=== PATIENT | male | born 1990 | race Caucasian/White ===

== ENCOUNTER 2020-07-23 16:18 | Emergency (ER) | payer OTHER, SELFPAY ==
--- NOTE | ~2020-07-23 | XR_ITS ---
EXAMINATION: XR CHEST CLINICAL INFORMATION: Indication cyst COMPARISON: Chest 07/04/2017. TECHNIQUE: Frontal view of the chest was obtained. FINDINGS: No significant abnormality is noted involving the heart, lungs, mediastinum, bony thorax or soft tissues. XR/XR chest 1V IMPRESSION: Unremarkable chest examination.
[2020-07-23 16:25] VITALS: BP 162/75; PULSE 102; RESP 18; TEMP 36.9; O2SAT 98; BMI 42.3
[2020-07-23 16:36] VITALS: BP 125/87; PULSE 90; RESP 18; O2SAT 98
[2020-07-23 16:55] LABS: MANUAL DIFF FLAG NO
[2020-07-23 16:58] LABS: Basophils Percent Auto 0.5 % (0-2); Eosinophils Absolute Auto 0.1 X10*3/uL (0.0-0.4); Eosinophils Percent Auto 1.3 % (0-4); Hematocrit 51.8 % (42-52); Hemoglobin 17.2 g/dl (14.0-18.0); Imm Gran Abs Auto 0.02 X10*3/uL (0.00-0.03); Imm Gran Pct Auto 0.2 % (0.0-0.4); Lymphocytes Percent Auto 35.2 % (20-40); Mean Corpuscular HGB Conc 33.2 g/dl (31.0-36.0); Mean Corpuscular Hemoglobin 27.8 pg (27.0-33.0); Mean Corpuscular Volume 83.7 fL (80-98); Mean Platelet Volume 10.9 fL (9.4-12.4); Monocytes Absolute Auto 0.7 X10*3/uL (0.1-1.2); Monocytes Percent Auto 8.3 % (2-11); Neutrophils Absolute Auto 4.6 X10*3/uL (2.0-8.3); Neutrophils Percent Auto 54.5 % (45-73); Platelet Count 293 X10*3/uL (160-400); Red Blood Count 6.19 X10*6/uL (4.60-5.80); Red Cell Distribution Width 12.6 % (11.0-16.0); White Blood Count 8.5 X10*3/uL (4.8-10.8)
--- NOTE | 2020-07-23 17:17 | ECG_ITS ---
Test Reason : REPEAT Blood Pressure : / mmHG Vent. Rate : 084 BPM Atrial Rate : 084 BPM P-R Int : 134 ms QRS Dur : 104 ms QT Int : 348 ms P-R-T Axes : 049 017 003 degrees QTc Int : 411 ms Normal sinus rhythm Normal ECG When compared with ECG of 28-JAN-2019 Referred By: Hannah Juárez Electronically Signed By:GAGE PÉREZ MD
--- NOTE | 2020-07-23 17:17 | ED.ARRPALP ---
HPI - Arrhythmia/Palpitations General Chief Complaint: Arrhythmia/Palpitations Stated Complaint: afib Source: patient Mode of arrival: ambulatory Limitations: no limitations History of Present Illness HPI narrative: 29-year-old male with past medical history of AFib with cardioversion approximately 2 years ago, sleep apnea awaiting CPAP, receives testosterone replacement, obese presents with palpitations that woke him up this morning at approximately 4:00 a.m.. States the palpitations feels like his prior episode of AFib. He does have sleep apnea, was fitted for a CPAP machine and is going to pick it up tomorrow. He does not have the palpations at this moment, states that he has had intermittent episodes of palpitations today. He does not describe any chest pain or pressure, shortness of breath, shortness of breath on exertion, abdominal pain, abdominal distention, dysuria, hematuria, fevers or chills. MD complaint: rapid heart beat, skipped beats and palpitations Onset (ago): day(s) (1) Severity: moderate Context: awoke with symptoms Arrhythmia history: atrial fibrillation and history of electrical cardioversion Associated symptoms: denies other symptoms Related Data Allergies Allergy/AdvReac Type Severity Reaction Status Date / Time prednisone Allergy Unknown Unknown Verified 07/23/20 16:28 No Known Allergies Allergy Unverified 01/26/20 17:16 Review of Systems Review of Systems: Constitutional: No Weight loss, No Fever, No Chills, No Night Sweats, No Fatigue, No Malaise ENT/Mouth: No Hearing loss, No Ear Pain, No Nasal Congestion, No Sinus Pain, No Hoarseness, No sore throat, No Rhinorrhea, No Swallowing Difficulty Eyes: No Eye Pain, No Swelling, No Redness, No Foreign Body, No Discharge, No Vision Changes Cardiovascular: Positive palpitations, No Chest Pain, no SOB, no Dyspnea on Exertion, No Orthopnea, No Edema Respiratory: No Cough, No Sputum, No Wheezing, No Smoke Exposure, No Dyspnea Gastrointestinal: No Nausea, No Vomiting, No Diarrhea, No abdominal Pain, No Hematochezia, No Melena Genitourinary: No irregular bleeding, No Dysuria, No Urinary Frequency, No Hematuria, No Urinary Incontinence, No Urgency, No Flank Pain, No Urinary Flow Changes, No Hesitancy Musculoskeletal: No joint pain, No Myalgias, No Joint Swelling Skin: No Skin Lesions, No rash Neuro: No Weakness, No Numbness, No Paresthesias, No Loss of Consciousness, No Dizziness, No Headache Psych: No Anxiety/Panic, No Depression, No SI/HI/AH/VH Heme/Lymph: No Bruising, No Bleeding,No Lymphadenopathy Endocrine: No Polyuria, No Polydipsia, No Temperature Intolerance Yes all other systems are reviewed and are negative [facility] Past Medical History Attestation statement: The following information was validated with the patient. Source: old records reviewed Social History Social History Alcohol intake: former Smoking Status: Former smoker Use of substances other than those prescribed or required for medical reasons: No Advance Directives: No Advance Directives Information Provided: No Physical Exam Vital Signs: Vital Signs: Last Vital Signs Temp 97.6 F 07/23/20 18:17 Pulse 90 07/23/20 18:17 Resp 12 07/23/20 18:17 BP 133/89 07/23/20 18:17 Pulse Ox 97 07/23/20 18:17 Body Mass Index 42.3 Appearance: Alert. Oriented X3. No acute distress. Head: Normal external exam. Normocephalic. Atraumatic. No Coyle signs noted. No raccoon eyes noted Eyes: PERRLA. EOMI. Conjunctiva and sclera normal. Eyelids normal. ENT: TM's Normal. Pharynx normal. Uvula midline. Moist mucous membranes. No trismus noted. No drooling noted. No muffled voice noted. Neck: Normal inspection. Neck supple. No adenopathy. Thyroid Normal. No meningeal signs. No neck mass noted. CVS: Normal heart rate and rhythm. Heart sound normal. No murmurs noted. Pulses equal to all extremities. Respiratory: No respiratory distress. Painless inspiration. Breath sounds normal. No wheezes/rales/rhonchi noted. Chest nontender. No accessory muscle usage noted or decreased air movement noted. Abdomen: Soft and nontender. Bowel sounds normal in all 4 quadrants. No distention noted. No organomegaly noted. No visible injury noted. Back: No CVA tenderness. Full range of motion noted. Skin: Skin warm and dry. Normal skin color. Normal skin turgor. No rashes/lesions/lacerations noted. Extremities: No lower extremity edema. Extremities exhibit normal range of motion. Extremities nontender. Neuro: cranial nerves 2-12 intact, no focal neural deficits, strength 5/5 to all extremities, No motor deficit. No sensory deficit. Reflexes normal. Course Course Course Narrative: 29-year-old male presents with palpitations. Does have recent history of sleep apnea, is taking of his CPAP machine tonight. Had cardioversion approximately 2 years ago for AFib. He is being treated with testosterone, he used anabolic steroids in his early 20s which messed up his system ?and now requires testosterone shots. Will repeat EKG, CBC, Chem 7, and troponin. At the time my exam patient is alert oriented x4, no acute distress, even unlabored respirations, regular rate and rhythm, no murmurs gallops or rubs, pulses equal to all extremities with brisk capillary refill. EKG is normal sinus rhythm, troponin 0, chest x-ray is negative. Patient has seen Dr. Woo and Dr Garsia remain in the past for Holter monitor in December of 2019 which showed no significant findings except for PVCs, and echocardiogram in 2014 with normal ejection fraction. He does not take any medications for his AFib, currently not in AFib according to EKG. Patient will follow-up with Dr. Garsia for medication consult, palpitations could also be because of sleep apnea without CPAP machine. He does understand the importance of using this device. MDM - Arrhythmia/Palpitations Differential Diagnosis Differential diagnosis: Likely palpitations, anxiety, sinus tachycardia, artial fibrillation, artial flutter, ventricular premature beats and supraventricular tachycardia Medical Records Attestation: I reviewed the patient's medical records. Lab Data Attestation: I reviewed the patient's lab results. Result diagrams: 07/23/20 16:46 07/23/20 16:46 Labs: Lab Results 07/23/20 07/23/20 07/23/20 Range/Units 16:46 16:46 16:46 WBC 8.5 (4.8-10.8) X10*3/uL RBC 6.19 H (4.60-5.80) X10*6/uL Hgb 17.2 (14.0-18.0) g/dl Hct 51.8 (42-52) % MCV 83.7 (80-98) fL MCH 27.8 (27.0-33.0) pg MCHC 33.2 (31.0-36.0) g/dl RDW 12.6 (11.0-16.0) % Plt Count 293 (160-400) X10*3/uL MPV 10.9 (9.4-12.4) fL Immature Gran % (Auto) 0.2 (0.0-0.4) % Neut % (Auto) 54.5 (45-73) % Lymph % (Auto) 35.2 (20-40) % Ritchie % (Auto) 8.3 (2-11) % Eos % (Auto) 1.3 (0-4) % Baso % (Auto) 0.5 (0-2) % Lymph # (Auto) 3.0 (1.2-4.9) X10*3/uL Ritchie # (Auto) 0.7 (0.1-1.2) X10*3/uL Eos # (Auto) 0.1 (0.0-0.4) X10*3/uL Baso # (Auto) 0.0 (0.0-0.2) X10*3/uL Abs Immat Gran (auto) 0.02 (0.00-0.03) X10*3/uL Absolute Neuts (auto) 4.6 (2.0-8.3) X10*3/uL Absolute Nucleated RBC 0.000 (0.0-0.012) X10*3/uL Nucleated RBC % (auto) 0.0 (0.0-0.2) /100WBC Hold Purple Top SEE NOTE Hold Blue Top SEE NOTE Sodium (135-145) mmol/L Potassium (3.3-5.1) mmol/L Chloride (96-108) mmol/L Carbon Dioxide (22-29) mmol/L Anion Gap (12-20) BUN (9-16) mg/dL Creatinine (0.5-1.4) mg/dL Estim Creat Clear Calc Estimated GFR Random Glucose (60-115) mg/dL Calcium (8.4-10.2) mg/dL Total Bilirubin (0.0-1.0) mg/dL AST (5-37) U/L ALT (0-40) U/L Alkaline Phosphatase (39-117) U/L Troponin I High Sens (<3.5-35.0) ng/L Total Protein (6.5-8.0) g/dL Albumin (3.5-5.0) g/dL 07/23/20 07/23/20 Range/Units 16:46 16:49 WBC (4.8-10.8) X10*3/uL RBC (4.60-5.80) X10*6/uL Hgb (14.0-18.0) g/dl Hct (42-52) % MCV (80-98) fL MCH (27.0-33.0) pg MCHC (31.0-36.0) g/dl RDW (11.0-16.0) % Plt Count (160-400) X10*3/uL MPV (9.4-12.4) fL Immature Gran % (Auto) (0.0-0.4) % Neut % (Auto) (45-73) % Lymph % (Auto) (20-40) % Ritchie % (Auto) (2-11) % Eos % (Auto) (0-4) % Baso % (Auto) (0-2) % Lymph # (Auto) (1.2-4.9) X10*3/uL Ritchie # (Auto) (0.1-1.2) X10*3/uL Eos # (Auto) (0.0-0.4) X10*3/uL Baso # (Auto) (0.0-0.2) X10*3/uL Abs Immat Gran (auto) (0.00-0.03) X10*3/uL Absolute Neuts (auto) (2.0-8.3) X10*3/uL Absolute Nucleated RBC (0.0-0.012) X10*3/uL Nucleated RBC % (auto) (0.0-0.2) /100WBC Hold Purple Top Hold Blue Top Sodium 140 (135-145) mmol/L Potassium 4.0 (3.3-5.1) mmol/L Chloride 104 (96-108) mmol/L Carbon Dioxide 25 (22-29) mmol/L Anion Gap 15 (12-20) BUN 14 (9-16) mg/dL Creatinine 1.22 (0.5-1.4) mg/dL Estim Creat Clear Calc 120.7 Estimated GFR > 60 Random Glucose 124 H (60-115) mg/dL Calcium 9.3 (8.4-10.2) mg/dL Total Bilirubin 0.8 (0.0-1.0) mg/dL AST 20 (5-37) U/L ALT 28 (0-40) U/L Alkaline Phosphatase 96 (39-117) U/L Troponin I High Sens < 3.5 (<3.5-35.0) ng/L Total Protein 6.8 (6.5-8.0) g/dL Albumin 4.0 (3.5-5.0) g/dL Imaging Data Chest x-ray: Attestation: I personally reviewed and interpreted this imaging study as follows: Radiologist's impression: EXAMINATION: XR CHEST CLINICAL INFORMATION: Indication cyst COMPARISON: Chest 07/04/2017. TECHNIQUE: Frontal view of the chest was obtained. FINDINGS: No significant abnormality is noted involving the heart, lungs, mediastinum, bony thorax or soft tissues. XR/XR chest 1V IMPRESSION: Unremarkable chest examination. ECG Data Attestation: I personally reviewed and interpreted this ECG as follows: ECG interpretation date: 07/23/20 ECG interpretation time: 16:36 Prior ECG tracings: not available for review Interpretation: Ventricular rate 94 beats per minute, RI 122, QRS 104, QT 330, QTC 412, normal sinus rhythm with sinus arrhythmia suggestive of early repolarization, prior EKG unavailable secondary to system 130 error EKG 2. July 24, 2019, time 6:51 p.m. Ventricular rate 84 beats per minute, RI 134, QRS 104, QT 348, QTC 411, normal sinus rhythm, normal EKG, no indication of ST depression or elevation consistent with ischemia, early repolarization, consistent with prior EKG on July 23, 2020 at 4:36 p.m. Scores Heart Score History: -0- slightly suspicious ECG: -1- non specific repolarization disturbance Age: -0- < or = 45 Risk factory: -1- 1 or 2 risk factors Troponin: -0- < or = normal limit Score: 2 Risk: 1.7% Discharge Plan Discharge Clinical Impression: Palpitations Patient Disposition: Home, Self-Care Instructions: Heart Palpitations (ED) Additional Instructions: You were evaluated for palpitations. Two EKGs were normal sinus rhythm with out any indication of ST elevation or depression. There is no indication of atrial fibrillation or flutter. Your cardiac enzymes were negative. Based on your past history of cardioversion for AFib approximately 2 years ago is highly recommended that he follow-up with Cardiology. I referred you to Dr Garsia. Please call and request an appointment for evaluation. Please apple picker your CPAP tomorrow. You do have an elevated glucose level of 124. This is considered prediabetes. Please follow-up with your primary care physician for closer monitoring. Thank you for choosing this emergency department for evaluation. Please follow-up with primary care physician as needed. Return to the emergency department for any new, concerning, or worsening symptoms. Referrals: Ramone Garsia MD [Physician] - 2 days (Palpitations, history of cardioversion approximately 2 years ago for AFib) Stand Alone Forms: Work/School Release Interventions: ED Discharge Assessment Last Done: 07/23/20 19:27 Discharge Date/Time: 07/23/20 19:28
[2020-07-23 17:19] VITALS: BP 132/79; PULSE 91; RESP 17; TEMP 36.9; O2SAT 97
[2020-07-23 17:21] LABS: Alanine Aminotransferase 28 U/L (0-40); Alkaline Phosphatase 96 U/L (39-117); Anion Gap 15 (12-20); Aspartate Amino Transferase 20 U/L (5-37); Bilirubin Total 0.8 mg/dL (0.0-1.0); Blood Urea Nitrogen 14 mg/dL (9-16); Calcium 9.3 mg/dL (8.4-10.2); Carbon Dioxide 25 mmol/L (22-29); Chloride 104 mmol/L (96-108); Creatinine Clr Calc Pharmacy 120.7; Estimated Glomerular Filt Rate > 60; Glucose Random 124 mg/dL (60-115); Sodium 140 mmol/L (135-145); Total Protein 6.8 g/dL (6.5-8.0)
--- NOTE | 2020-07-23 17:27 | PC.NURSE ---
Verified lab can run trop off of hold lav. Pending results.
[2020-07-23 17:45] LABS: Troponin-I High Sensitivity < 3.5 ng/L (<3.5-35.0)
[2020-07-23 18:17] VITALS: BP 133/89; PULSE 90; RESP 12; TEMP 36.4; O2SAT 97
== END 2020-07-23 19:28 | disposition home or self-care (01) ==
PROVIDERS: Nurse Practitioner Family; Emergency Provider Emergency Medicine; PCP Family Medicine
DX: R00.2 Palpitations (principal); I48.91 Unspecified atrial fibrillation; Z87.891 Personal history of nicotine dependence
CPT/HCPCS: 36415; 71045; 80053; 84484; 85025; 93005; 99283; 99285

== ENCOUNTER 2022-12-22 08:55 | Outpatient (REF) | payer OTHER, SELFPAY ==
--- NOTE | ~2022-12-22 | XR_ITS ---
EXAMINATION: XR ANKLE, LEFT XR TIBIA-FIBULA, LEFT CLINICAL INFORMATION: Chronic left ankle pain and lower leg pain, limping due to pain. Lateral leg injury in February 2022. Patient states numbness and tingling in toes when he plays basketball. Friona like his toes were bigger or mata . COMPARISON: None available. TECHNIQUE: 4 views of the left tibia/fibula. AP, oblique and 2 lateral views of the left ankle. FINDINGS: LEFT TIBIA/FIBULA: Tiny quadriceps enthesophyte. Bone mineralization is normal. LEFT ANKLE: The ankle mortise is preserved. Alignment maintained. Small possible ossicles along the anteroinferior aspect of the distal tibia on the lateral view of the ankle are difficult to characterize due to overlying bony structures. Additional imaging with CT scan or MRI should be considered for better visualization as these modalities are much more sensitive for detection of fracture or other underlying pathology. XR/XR ankle LT min 3V IMPRESSION: Small possible ossicles along the anteroinferior aspect of the distal tibia on the lateral view of the ankle are difficult to characterize due to overlying bony structures. Additional imaging with CT scan or MRI should be considered for better visualization as these modalities are much more sensitive for detection of fracture or other underlying pathology. Tiny quadriceps enthesophyte.
--- NOTE | ~2022-12-22 | XR_ITS ---
EXAMINATION: XR ANKLE, LEFT XR TIBIA-FIBULA, LEFT CLINICAL INFORMATION: Chronic left ankle pain and lower leg pain, limping due to pain. Lateral leg injury in February 2022. Patient states numbness and tingling in toes when he plays basketball. Pana like his toes were bigger or mata . COMPARISON: None available. TECHNIQUE: 4 views of the left tibia/fibula. AP, oblique and 2 lateral views of the left ankle. FINDINGS: LEFT TIBIA/FIBULA: Tiny quadriceps enthesophyte. Bone mineralization is normal. LEFT ANKLE: The ankle mortise is preserved. Alignment maintained. Small possible ossicles along the anteroinferior aspect of the distal tibia on the lateral view of the ankle are difficult to characterize due to overlying bony structures. Additional imaging with CT scan or MRI should be considered for better visualization as these modalities are much more sensitive for detection of fracture or other underlying pathology. XR/XR tibia fibula LT 2V IMPRESSION: Small possible ossicles along the anteroinferior aspect of the distal tibia on the lateral view of the ankle are difficult to characterize due to overlying bony structures. Additional imaging with CT scan or MRI should be considered for better visualization as these modalities are much more sensitive for detection of fracture or other underlying pathology. Tiny quadriceps enthesophyte.
== END 2022-12-22 08:56 | disposition home or self-care (01) ==
LOC: HO.HHCX 08:55
PROVIDERS: Visit Provider Family Medicine
DX: M25.572 Pain in left ankle and joints of left foot (principal); M79.605 Pain in left leg
CPT/HCPCS: 73590; 73610

== ENCOUNTER 2023-04-29 13:39 | Outpatient (REF) | payer BC, SELFPAY ==
[2023-04-29 16:46] LABS: MANUAL DIFF FLAG NO
[2023-04-29 16:52] LABS: Basophils Absolute Auto 0.1 X10*3/uL (0.0-0.2); Basophils Percent Auto 0.6 % (0-2); Eosinophils Absolute Auto 0.3 X10*3/uL (0.0-0.4); Eosinophils Percent Auto 2.7 % (0-4); Hematocrit 52.6 % (42.0-52.0); Hemoglobin 17.3 g/dl (14.0-18.0); Imm Gran Abs Auto 0.04 X10*3/uL (0.00-0.03); Imm Gran Pct Auto 0.4 % (0.0-0.4); Lymphocytes Absolute Auto 4.3 X10*3/uL (1.2-4.9); Lymphocytes Percent Auto 42.8 % (20-40); Mean Corpuscular HGB Conc 32.9 g/dl (31.0-36.0); Mean Corpuscular Hemoglobin 28.8 pg (27.0-33.0); Mean Corpuscular Volume 87.5 fL (80.0-98.0); Mean Platelet Volume 10.9 fL (9.4-12.4); Monocytes Absolute Auto 0.9 X10*3/uL (0.1-1.2); Monocytes Percent Auto 8.7 % (2-11); Neutrophils Absolute Auto 4.5 x10*3/uL (2.0-8.3); Neutrophils Percent Auto 44.8 % (45-73); Platelet Count 260 X10*3/uL (160-400); Red Blood Count 6.01 X10*6/uL (4.60-5.80); Red Cell Distribution Width 12.9 % (11.0-16.0); White Blood Count 9.9 X10*3/uL (4.8-10.8)
[2023-04-29 17:23] LABS: Estimated Average Glucose 123 mg/dL; Hemoglobin A1c % 5.9 % (<6.0)
[2023-04-29 17:44] LABS: Alanine Aminotransferase 37 U/L (0-40); Alkaline Phosphatase 84 U/L (39-117); Anion Gap 12 (12-20); Aspartate Amino Transferase 26 U/L (5-37); Bilirubin Direct 0.2 mg/dL (0.0-0.5); Blood Urea Nitrogen 13 mg/dL (9-16); Calcium 9.1 mg/dL (8.4-10.2); Carbon Dioxide 27 mmol/L (22-29); Chloride 103 mmol/L (96-108); Cholesterol 240 mg/dL (<200); Estimated Glomerular Filt Rate > 60; Glucose Random 146 mg/dL (60-115); HDL Cholesterol 40 mg/dL (>40); Iron 189 mcg/dL (45-160); LDL Cholesterol Calculated 170 mg/dL (<100); Percent Iron Saturation 49 % (15-50); Potassium 4.1 mmol/L (3.3-5.1); Sodium 138 mmol/L (135-145); Total Iron Binding Capacity 389 mcg/dL (228-428); Total Protein 7.2 g/dL (6.5-8.0); Triglycerides 152 mg/dL (<150); Unsaturated Iron Binding 200 ug/dL
[2023-04-29 17:51] LABS: Ferritin 301 ng/mL (20-250); Free T4 (Free Thyroxine) 0.85 ng/dL (0.71-1.85); Thyroid Stimulating Hormone 2.48 uIU/mL (0.32-4.0); Vitamin D 25-OH Total 45.7 ng/mL (>30)
[2023-04-29 18:14] LABS: CT PCR NOT DETECTED (Not Detect.); NG PCR NOT DETECTED (Not Detect.)
[2023-04-30 07:50] LABS: Syphilis Screen Nonreactive (Nonreactive)
[2023-04-30 07:53] LABS: HIV AB/AG Nonreactive (Nonreactive); HIV Num 1 0.04 S/CO (0.00-0.99)
[2023-04-30 07:58] LABS: HBS Num1 85.14 mIU/mL (0-7.99); HBsAGNum1 0.48 S/CO (0.00-0.99); Hepatitis B Surface Antigen Negative (Negative); ~HepC Num1 0.11 S/CO (0.00-0.79); ~Hepatitis B Surface Antibody REACTIVE (Nonreactive); ~Hepatitis C Antibody Nonreactive (Nonreactive)
[2023-05-01 13:19] LABS: HIV RNA PCR Qn Copies NOT DETECTED copies/mL (NOT DETECTED); HIV RNA PCR Qn Log Copies NOT DETECTED (NOT DETECTED)
[2023-05-03 05:48] LABS: Estradiol Ultra Sensitive 21 pg/mL (< OR = 29)
[2023-05-10 14:33] LABS: Testosterone, Free 33.7 pg/mL (35.0-155.0); Testosterone, Total 138 ng/dL (250-1100)
== END 2023-04-29 13:40 | disposition home or self-care (01) ==
LOC: HO.HHCL 13:39
PROVIDERS: Visit Provider Family Medicine
DX: Z00.00 Encounter for general adult medical examination without abnormal findings (principal); R79.89 Other specified abnormal findings of blood chemistry; Z20.2 Contact with and (suspected) exposure to infections with a predominantly sexual mode of transmission
CPT/HCPCS: 0353U; 36415; 80048; 80061; 80076; 82306; 82670; 82728; 83036; 83540; 84402; 84403; 84439; 84443; 85025; 86706; 86780; 86803; 87340; 87389; 87536

== ENCOUNTER 2024-11-15 11:27 | Outpatient (AMB) | payer OTHER, SELFPAY ==
--- NOTE | 2024-11-15 11:43 | A.OFFPC_ITS ---
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 Intake Note: patient here for new patient visit Simulation Developer Required: No Accompanied by: Spouse Allergies prednisone Allergy (Unknown, Verified 11/15/24 12:12) Unknown No Known Allergies Allergy (Verified 11/15/24 12:12) Medication List - Last Reviewed 11/22/24 by Lisa De Jesus MA testosterone cypionate (Depo-Testosterone) 200 mg subcut Q5D Tobacco use date assessed: 11/15/24 Dental Screening Dental Screen Date: 11/15/24 Did you have a dental visit in the last 12 months?: Yes Did you have a dental problem in the last 6 months where you did not have access to dental care?: No Was dental information given to patient?: Patient has dentist HPI HPI Comments History of Present Illness Details 34-year-old male presents to establish c are. Prior PCP? - [facility] Last office visit/CPE/labs - About 1 year Acute issue(s) - Reports chronic, intermittent sharp/p ulsating pain to his left lateral malelous and tingling and numbness of his left foot with increased physical activity. He attributes the pain to left ankle injury 2.5 years ago during a physical test for employment. He was followed by [facility] and [facility], had imaging done, including, MRI, and was told he had a tendon sprain. He requests a referral to another ortho specialist for a third opinion. - Reports TRT. He is on Depo-testosteron e 200 mg SC Q5D. His medications are prescribed by [facility], urology, in [place], [place]. Past Medical History - Childhood asthma, HLD, low testerone, chronic left ankle pain r/t left ankle injury Surgical History - Rhinoplasty Family History - Dad: DM, HTN, HLD, substance abuse - Mom: Cancer of nasal bone, DM, HTN - MGM: DM, HTN, HLD - MGF: HTN, HLD - PGF: HTN, HLD - PGM: DM, HTN, HLD Social History - Smokes 1-2 cigarettes intermittently, smokes 3 months without smoking. Does not vape. Drinks 2-3 beers twice monthly. Denies recreational drug use - Has been making unhealthy dietary lee preston. Exercises routinely. Generally sleep well Health maintenance - He has never had an eye exam by an eye doctor. Referred to Ophthalmology for routine eye exam - Last dental visit was 2.5 months ago - Last tetanus vaccine was more than 10 years ago; Declines Tdap vaccine today - Has not been vaccinated for the flu ; declines vaccination [facility] Medical History (Updated 11/15/24 @ 20:41 by Amanuel King CNP) Left ankle injury Asthma Surgical History (Updated 11/15/24 @ 12:00 by Lisa De Jesus MA) History of rhinoplasty Family History (Updated 11/15/24 @ 12:08 by Lisa De Jesus MA) Father Substance abuse High blood pressure High cholesterol Diabetes Mother High blood pressure Diabetes Cancer of nasal bone Maternal Grandmother High blood pressure High cholesterol Diabetes Maternal Grandfather High blood pressure High cholesterol Paternal Grandfather High blood pressure High cholesterol Paternal Grandmother High blood pressure High cholesterol Diabetes Social History (Updated 11/15/24 @ 11:52 by Lisa De Jesus MA) Housing: Apartment Alcohol intake: former Patient Tobacco Use Status: Current everyday Tobacco user Tobacco use type: Cigarette Cigarettes Per Day: 2 e-Cigarette/Vaping Use: Never Used Second Hand Smoke Exposure: No service: No Current occupational status: employed 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 1. Little interest or pleasure in doing things: not at all 2. Feeling down, depressed, or hopeless: not at all 3. Trouble falling or staying asleep, or sleeping too much: not at all 4. Feeling tired or having little energy: not at all 5. Poor appetite or overeating: not at all 6. Feeling bad about yourself - or that you are a failure or have let yourself or your family down: not at all 7. Trouble concentrating on things, such as reading the newspaper or watching television: not at all 8. Moving or speaking so slowly that other people could have noticed. Or the opposite - being so fidgety or restless that you have been moving around a lot more than usual: not at all 9. Thoughts that you would be better off or of hurting yourself in some way: not at all Total score: 0 Depression Screening Interpretation: Positive Depression Screening Done: Yes 37636 - PHQ-9 Billing: Yes Source: Developed by Drs. Jh Alexander, Elise Obando, Pk Ballard and colleagues, with an educational juan r from [employer]. Thrive Questionnaire Date Thrive assessed: 11/15/24 I am a: Patient What is your living situation today?: I have a steady place to live Within the past 12 months, did the food you bought not last and you didn't have the money to get more?: I choose not to answer this question Within the past 12 months, did you worry whether your food would run out before you got money to buy more?: I choose not to answer this question Do you have trouble paying for medicines?: I choose not to answer this question Do you have trouble getting transportation to medical appointments?: I choose not to answer this question Do you have trouble paying your heating and electricity bill?: I choose not to answer this question Do you have trouble taking care of your child, family member or friend?: I choose not to answer this question Do you have trouble with day-to-day activities such as bathing, preparing meals, shopping, managing finances, etc.?: I choose not to answer this question Are you currently unemployed and looking for a job?: I choose not to answer this question Are you interested in more education?: I choose not to answer this question Please select the resources that you would like help with: None Currently or been in a relationship where the following occur: I choose not to answer THRIVE Score: 0 AUDIT C Alcohol Use Questionnaire (AUDIT-C) 1. How often do you have a drink containing alcohol?: Never 3. How often do you have six or more drinks on one occasion?: Never Total Score: 0 Score Reviewed/Action Taken: Yes BASIM-7 AMB Questionnaire BASIM-7 Date BASIM - 7 assessed: 11/15/24 Feeling nervous, anxious, or on edge: 0 = Not at all Not being able to stop or control worryin = Not at all Worrying too much about different things: 0 = Not at all Trouble relaxin = Not at all Being so restless that it is hard to sit still: 0 = Not at all Becoming easily annoyed or irritable: 0 = Not at all Feeling afraid as if something awful might happen: 0 = Not at all Total BASIM-7 score (0-4 normal; 5-9 mild; 10-14 moderate; 15-21 severe): 0 Source: Developed by Drs. Jh Alexander, Elise Obando, Pk Ballard and colleagues, with an educational juan r from [employer]. BASIM-7 Assessment Billing BASIM-7 Assessment Tool: BASIM-7 Assessment 02034 Review of Systems Const Details: Denies chills, Denies fatigue, Denies fever(s), Denies headache(s) and Denies weakness HEENT Denies change in vision, Denies dizziness, Denies headache(s), Denies hearing loss, Denies nasal congestion, Denies sinus pain, Denies sinus pressure and Denies sore throat Card Denies chest pain, Denies lightheadedness, Denies dyspnea and Denies other (palpitations) Resp Denies cough, Denies dyspnea and Denies wheezing GI Denies abdominal pain, Denies melena, Denies hematochezia, Denies change in bowel habits, Denies dyspepsia and Denies nausea Denies hematuria and Denies dysuria Musc Reports a per HPI Skin/Breast Denies rash, Denies unusual bruising and Denies wounds Neuro Denies abnormal gait, Denies dizziness, Denies headache(s), Denies memory loss, Denies numbness, Denies Sensory deficit (Neuro), Denies tingling and Denies weakness Psych Denies anxiety, Denies depression and Denies memory loss Endo Denies cold intolerance, Denies fatigue, Denies heat intolerance, Denies polydipsia and Denies polyuria Moi/Lymph Denies easy bleeding and Denies easy bruising Aller/Immun Denies wheezing Physical exam (Primary Care) Vital Signs: Last Vital Signs Temp 97.8 F 11/15/24 11:53 Pulse 82 11/15/24 11:53 Resp 16 11/15/24 11:53 BP 136/90 H 11/15/24 12:20 Pulse Ox 98 11/15/24 11:53 Oxygen Delivery Method Room Air 11/15/24 11:53 BMI result Body Mass Index 43.4 Tobacco/Smoking Status: Tobacco use Status Tobacco use date assessed 11/15/24 11/15/24 11:53 Patient Tobacco Use Status Current everyday Tobacco 11/15/24 11:53 Tobacco use type Cigarette 11/15/24 11:53 e-Cigarette/Vaping Use Never Used 11/15/24 11:53 PHQ-9: PHQ-9 Score PHQ-9: Total score 0 11/22/24 15:45 Depression Screening Interpretation: Positive Thrive Assessment: Date of Thrive Assessment Date Thrive assessed 11/15/24 11/15/24 11:46 Currently or been in a relationship where the following occur: I choose not to answer Const Other: General: no acute distress, well developed, alert and awake Nutritional Appearance: well nourished Orientation/consciousness: patient oriented x3 HENMT Head: Yes normocephalic and Yes atraumatic Ears: hearing grossly normal bilaterally and TM's normal bilaterally General nose exam: Normal external nose present and Normal nares present Mouth: Normal oral and palatal mucosa present and moist mucous membranes Teeth and gingiva: dentition normal Throat: Yes oropharynx normal Eyes Pupils: Equal, round and reactive pupils present and Pupil accommodation reflex normal EOM: EOMs intact bilaterally Neck Neck: Yes normal visual inspection, Yes no lymphadenopathy and Yes trachea midline Thyroid: Thyroid normal Carotids: no bruits Lymphatic: no lymphadenopathy noted Chest Chest palpation & inspection: normal inspection of the chest Resp Effort & Inspection: normal respiratory effort Auscultation: clear to auscultation bilaterally Cardio Rate: regular rate Rhythm: regular rhythm Heart sounds: S1 normal heart sound present, S2 normal heart sound present, no gallops, no murmurs and no rubs Bruits: no abdominal aortic bruits and no carotid bruits GI Palpation (GI): No Abdominal aortic bruit present, Soft to palpation, nontender, No hepatosplenomegaly present and No Rebound tenderness present Auscultation: normal bowel sounds General: Yes no CVA tenderness Back/Spine/Pelvis Back: no CVA tenderness Cervical Spine: cervical ROM normal and No Cervical spine tenderness Thoracic/Lumbar Spine: thoraco-lumbar ROM normal, No pain with thoraco-lumbar ROM, No thoracic spinal tenderness and No lumbar spinal tenderness Skin General: warm and dry. Normal skin color. Normal skin turgor Lesions: no lesions Rashes: no rashes Trauma: no lacerations or abrasions Wounds: no wounds Nails: normal Neuro General: patient oriented x3, gait normal and CN's II-XI intact bilaterally Cranial nerves: Yes Equal, round and reactive pupils present Cognition (Neuro): normal cognition Gait exam (Neuro): Normal gait present Motor exam (neuro): 5/5 motor strength present throughout Sensory Exam: No Sensory deficit (Neuro) Deep tendon reflexes (DTR's): Right patellar reflex intensity grade: 2+ and Left patellar reflex intensity grade: 2+ Extrem General: Yes normal to inspection, No edema and No calf tenderness. No edema, erythema, tenderness, or overt injury or trauma of the left ankle Psych Appearance: grossly normal Affect: normal affect Attitude: cooperative Thought process: Normal thought process present Coding Level of Care Code New Pt Level 4 (85477) New Pt Prev Care 18-39yr(20486 Diagnoses Normal physical examination, routine Z00.00 Elevated blood pressure reading without diagnosis of hypertension R03.0 Chronic pain of left ankle M25.572; G89.29 Low serum testosterone R79.89 Hyperlipidemia E78.5 Morbid obesity with BMI of 40.0-44.9, adult E66.01; Z68.41 Eye exam, routine Z01.00 Laboratory tests ordered as part of a complete physical exam (CPE) Z00.00 Additional Codes BASIM-7 Assessment Billing - BASIM-7 Assessment Tool: BASIM-7 Assessment 01561 ([id number]) PHQ-9 - 58773 - PHQ-9 Billing: Yes ([id number]) Time Spent (min) 60 Assessment & Plan Assessment & Plan (1) Normal physical examination, routine: Code(s): Z00.00 - Encounter for general adult medical examination without abnormal findings Category: Medical Plan: No significant functional limitation noted. Healthy diet and routine exercise encouraged. Perform lab work and imaging and follow-up with PCP in 1 month for hypertension and labs review. Return sooner with symptoms or concerns. Verbalized understanding and agreed with the plan. (2) Elevated blood pressure reading without diagnosis of hypertension: Code(s): R03.0 - Elevated blood-pressure reading, without diagnosis of hypertension Category: Medical Plan: Resting blood pressure is 136/90, above goal of less than 140/90. Low-sodium diet and routine exercise encouraged. Encouraged to monitor blood pressure 2-3 times weekly and notify provider of blood pressure readings persistently above 140/90. Follow-up for a nurse visit for blood pressure check in 1 week and with PCP in 1 month. Verbalized understanding and agreed with the plan. (3) Chronic pain of left ankle: Code(s): M25.572 - Pain in left ankle and joints of left foot; G89.29 - Other chronic pain Category: Medical Plan: Reports chronic, intermittent sharp/pulsating pain to his left lateral malelous and tingling and numbness of his left foot with increased physical activity. He attributes the pain to an left ankle injury 2.5 years ago during a physical test for employment. He was followed by [facility] and [facility], had imaging done, including, MRI, and was told he had a tendon sprain. He requests a referral to another ortho specialist for a third opinion. No edema, erythema, tenderness, or overt injury or trauma of the left ankle. May take Tylenol/Ibuprofen for pain or discomfort. Warm/cool compresses encouraged. X-ray of left ankle ordered. Referred to [facility]. Return as needed. Verbalized understanding and agreed with the plan. (4) Low serum testosterone: Code(s): R79.89 - Other specified abnormal findings of blood chemistry Category: Medical Plan: Reports TRT. He is on Depo-testosterone 200 mg SC Q5D. His medications are prescribed by [facility], urology, in [place], [place]. He has h/o low Free and Total testosterone level here. Will check testosterone levels and make changes as needed. May refer to endocrinology as needed. (5) Hyperlipidemia: Code(s): E78.5 - Hyperlipidemia, unspecified Category: Medical Plan: He has never been on medication for high cholesterol. Advised to limit foods high in saturated fat and avoid foods high in trans fat. Routine exercise encouraged. Will check lipid panel level and make changes as needed. Verbalized understanding and agreed with the plan. (6) Morbid obesity with BMI of 40.0-44.9, adult: Code(s): E66.01 - Morbid (severe) obesity due to excess calories; Z68.41 - Body mass index [BMI] 40.0-44.9, adult Category: Medical Plan: He currently weights 302 lb, BMI is 43.4. Healthy diet and routine exercise encouraged. Follow up as needed. Verbalized understanding and agreed with the plan. (7) Eye exam, routine: Code(s): Z01.00 - Encounter for examination of eyes and vision without abnormal findings Category: Medical Plan: He has never had an eye exam by an eye doctor. Referred to Ophthalmology for routine eye exam. (8) Laboratory tests ordered as part of a complete physical exam (CPE): Code(s): Z00.00 - Encounter for general adult medical examination without abnormal findings Category: Medical Plan: Fasting labs ordered as part of a complete physical exam. Advised to fast for at least 10 hours before getting labs drawn. May drink water Verbalized understanding and agreed with treatment plan. Plan Total time for this visit was 60 minutes. This include 40 minutes with patient, performing complete physical exam and chronic disease management/treatment, and 20 minutes reviewing, coordinating plan of care, and documenting. Orders: Orders Complete Blood Count Auto Diff 11/15/24 Z - Encounter for general adult medical examination without abnormal findings TSH reflex Free T4 11/15/24 Z.00 - Encounter for general adult medical examination without abnormal findings Vitamin D 25-OH Total 11/15/24 Z. - Encounter for general adult medical examination without abnormal findings XR ankle LT 2V 11/15/24 G89.29 - Other chronic pain, M25.572 - Pain in left a nkle and joints of left foot Comprehensive Shock. Panel Fast 11/15/24 Z - Encounter for general adult medical examination without abnormal findings Lipid Panel 11/15/24 Z. - Encounter for general adult medical examination without abnormal findings Microalbumin, Random (w Creat) 11/15/24 Z. - Encounter for general adult medical examination without abnormal findings UA CC w/rflx Micro + Cult 11/15/24 Z - Encounter for general adult medical examination without abnormal findings Testosterone, Free/Total 11/15/24 R79.89 - Other specified abnormal findings of blood chemistry Referrals Orthopedics Referral G89.29 - Other chronic pain, M25.572 - Pain in left ankle and joints of left foot Ophthalmology Referral Z01.00 - Encounter for examination of eyes and vision without abnormal findings
[2024-11-15 11:53] VITALS: BP 146/102; PULSE 82; RESP 16; TEMP 36.6; O2SAT 98; BMI 43.4
[2024-11-15 12:20] VITALS: BP 136/90
--- OUTSIDE RECORDS SUMMARY | 2024-11-15 12:33 | XMS_ITS | Clinical Summary ---
Author Organization [employer] Address [address] [facility] [address] [place] [address] Care Team Providers Care Patient Companion Name Role Phone Meli Fofana DO Primary Care Provider + [phone] Allergies Active Allergy Reactions Criticality Noted Date Comments Prednisolone Itching 03/23/2023 Medications testosterone cypionate (Depo-Testosteron e) 200 MG/ML injection Inject 0.3 mL into the shoulder, thigh, or buttocks once a week. Active QUEtiapine (SEROquel) 25 MG tablet Take 1 tablet by mouth at bedtime. And twice a day as needed for depression Active hydrOXYzine pamoate (Vistaril) 50 MG capsule Take 1 capsule by mouth if needed in the morning, at noon, and at bedtime for anxiety. Active amphetamine-dextr oamphetamine XR (Adderall XR) 10 MG 24 hr capsuleIndication s:Attention deficit hyperactivity disorder (ADHD), unspecified ADHD type TAKE 1 CAPSULE BY MOUTH EVERY MORNING. DO NOT CRUSH OR CHEW. 30 capsule Active Active Problems Problem Noted Date Diagnosed Date Suicidal ideation 12/29/2023 Assessment & Plan (12/29/2023 4:12 PM EDT): It was the reason for recent admission, unclear if related to THC use or MH condition/bipolar? It was controlled with therapy and meds. He's currently off meds, not doing any drugs. Advised to use Adderall as prescribed for now and fu with PCP. Advised to avoid recreational substances including THC ADHD 03/23/2023 Assessment & Plan (12/29/2023 4:10 PM EDT): On Adderall and fu with PCP, he seems to be doing well. He should remain on same dose Aderall 10mg/d for now. Avoid using recreational substances or ETOH. FU with MH counselor Rafa Morgan (out of [place]) FU with PCP to address adjustment of medication. Dyslipidemia 03/23/2023 Elevated blood pressure read ing in office without diagnosis of hypertension 01/02/2023 Assessment & Plan (01/02/2023 8:10 AM EDT): Patient with this for > 1 year He receives outside testosterone supplementation Needs CBC and CMP done, orders are in May need dose adjustment vs. Starting BP meds BMI 40.0-44.9, adult 10/02/2022 Adjustment disorder 10/02/2022 Assessment & Plan (10/02/2022 11:00 AM EDT): - pt states condition improved - pt feels confident going back to work on 10/08/22 - letter was given to pt Hypogonadism, male 10/02/2022 Assessment & Plan (12/29/2023 3:56 PM EDT): He apparently pays for Testosterone injections, I don't see note from endocrinology Order testosterone levels and fu with PCP. Needs to come and sign [place] to obtain records from endo. 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 Patient was discharged from [facility] after MRI leg was reviewed. He wants a second opinion, I will schedule an appt with his PCP to discuss POC> Assessment & Plan (01/02/2023 8:11 AM EDT): Anterior-lateral leg pain on the left Letter given for work supporting staying home until MRI complete MRI ordered STAT Assessment & Plan (10/02/2022 10:59 AM EDT): Will refer to physical therapy Chronic pain of left ankle 10/02/2022 Assessment & Plan (10/02/2022 10:59 AM EDT): Will refer to physical therapy Low testosterone 12/12/2020 Obstructive sleep apnea 12/12/2020 Resolved Problems Problem Noted Date Diagnosed Date Resolved Date Hyperglycemia 12/31/2022 03/23/2023 Immunizations Immunization Administration Dates Next Due Tdap 03/06/2022 Social History Tobacco Use Types Packs/Day Years Used Date Smoking Tobacco: Every Day Cigarettes Passive Smoke Exposure: Current Smokeless Tobacco: Never Tobacco Cessation:Ready to Q uit: Not Asked; Counseling Given: Not Answered Alcohol Use Standard Drinks/Week Comments Never 0 (1 standard drink = 0.6 oz pur e alcohol) Alcohol Answer Date Recorded Frequency of Alcohol Consumption Not on file 03/23/2023 Average Number of Drinks Not on file 023 Frequency of Binge Drinking Not on file 03/11 Score 0 03/23/2023 Depression Answer Date Recorded Patient Health Questionnaire-9 Score 0 03/23/2023 Patient Health Questionnaire-9 Score 0 03/23/2023 Last PHQ-9: Questionnaire Data Not on file 1 05/23/2022 Housing Stability Answer Date Recorded What is your housing situation today? I have patricia centeno 03/23/[address] you li ve. Do you have problems with any of the following? None of the above 03/23/2023 Food Insecurity Answer Date Recorded Within the past 12 months, y ou worried that your food would run out before you got money to buy more: Never True 03/23/2023 Within the past 12 months,th e food you bought just didn't last and you didn't have enough money to get more: Never True Transportation Answer Date Recorded In the past 12 months, has l ack of transportation kept you from medical appts, meetings, work or from getting things needed for daily living? No 03/23/2023 Utilities Answer Date Recorded In the past 12 months, has t he electric, gas, oil or water company threatened to shut off services in your home? No 03/23/2023 Depression Answer Date Recorded Patient Health Questionnaire-2 Score 0 03/23/2023 Sex and Gender Information Value Date Recorded Sex Assigned at Male 03/10/2022 10:18 AM EDT Legal Sex Male 10:18 AM EDT Gender Identity Male 03/10/2022 10:18 AM EDT Sexual Orientation Straight 03/10/2022 10 :18 AM EDT Last Filed Vital Signs Vital Sign Reading Time Taken Comments Blood Pressure 124/88 03/23/2023 1:24 PM EST Pulse 66 03/23/2023 11:26 AM EST Temperature 37.4 C (99.3 F) 03/23/2023 11:26 AM EST Respiratory Rate 18 03/23/2023 11:26 AM EST Oxygen Saturation 99% 12/31/2022 4:04 PM EDT Inhaled Oxygen Concentration - - Weight 130 kg (286 lb 2 oz) 03/23/2023 11:26 AM EST Height 177.8 cm (5' 10 ) 03/23/2023 11:26 AM EST Body Mass Index 41.05 03/23/2023 11:26 AM EST Plan of Treatment Health Maintenance Due Date Last Done Comments Dental Oral Exam 1988 Dental Prophylaxis 1988 Dental X-Ray: Full Mouth 1988 Disability Screening 1988 Alcohol/Substance Use Screening 2000 Family Planning (PISQ) 11/08/2003 Hepatitis B Vaccines (1 of 3 - 19+ 3-dose series) 11/08/2007 Pneumococcal Vaccine: Pediatrics (0 to 5 Years) and At-Risk Patients (6 to 49) Years (1 of 2 - PCV) 11/08/2007 Dental X-Ray: Bitewings 01/03/2024 01/01/2023 COVID-19 Vaccine (2023- season) 2024 11/16/2020, 09/26/2020 Depression Screening 03/23/2024 03/23/2023, 03/23/20 23 SDOH Screening 03/23/2024 03/23/2023 Tobacco Screening 07/02/2024 07/02/2023 Influenza Vaccine (#1) 2025 Lipid Panel 04/29/2028 04/29/2023, 12/24/2020 DTaP/Tdap/Td Vaccines (2 - Td or Tdap) 03/06/2032 03/06/2022 Zoster Vaccines (1 of 2) 2038 RSV Patients and Patients Aged 60 years or older (1 - 1-dose 75+ series) 11/08/2063 HIV Screening Completed 04/29/2023, 04/11, 12/24/2020, Additional history exists Hepatitis C Screening Completed 04/29/2023 , 12/24/2020, 12/02/2019 HIB Vaccines Aged Out No longer eligi ble based on patient's age to complete this topic HPV Vaccines Aged Out No longer eligi ble based on patient's age to complete this topic Hepatitis A Vaccines Aged Out No long er eligible based on patient's age to complete this topic IPV Vaccines Aged Out No longer eligi ble based on patient's age to complete this topic Meningococcal B Vaccine Aged Out No l onger eligible based on patient's age to complete this topic Meningococcal Vaccine Aged Out No raegan kayla eligible based on patient's age to complete this topic RSV under 20 months Aged Out No longe r eligible based on patient's age to complete this topic Rotavirus Vaccines Aged Out No longer eligible based on patient's age to complete this topic Procedures Procedure Name Priority Date/Time Associated Diagnosis Comments HEPATITIS C AB W/REFL TO HCV RNA, QN, PCR Routine 04/29/2023 1:42 PM EST HIV 1/2 ANTIGEN/ANTIBODY, FOURTH GENERATION W/RFL Routine 04/29/2023 1:42 PM EST Healthcare maintenance LIPID PANEL, STANDARD Routine 04/29/2023 1:42 PM EST Healthcare maintenance BITEWING - SINGLE RADIOGRAPHIC IMAGE Routine 01/01/2023 11:30 AM EDT Necrosis of dental pulp from Last 3 Months or Most Recently Relevant to Health Maintenance Results * Hepatitis C Antibody with Reflex to HCV, RNA, Quantitative, Real-Time PCR (04/29/2023 1:42 PM EST) Hepatitis C Antibody Nonreactive Nonreactive [facility] Comment:Antibodies to HCV no t detected; does not exclude early acuteHCV infection. 04/29/2023 1:42 PM EST 04/29/2023 4:[address] LAB BLOOD ORDERABLES Final R esult Performing Organization Address City/[facility]/ZIP Co de Phone Number [facility] [address] [place] [phone] * HIV-1/2 Antigen and Antibodies, Fourth Generation, with Reflexes (04/29/2023 1:42 PM EST) HIV AB/AG Nonreactive Nonreactive [facility] Comment:HIV-1 p24 Ag and/or HIV-1/HIV-2 Ab not detected.A test result that is nonreactive does not exclude thepossibility of exposure to or infection with HIV-1 and/orHIV-2. Nonreactive results in this assay for individualswith prior exposure to HIV-1 and/or HIV-2 may be due toantigen and antibody levels that are below the limit ofdetection of this assay.The [employer] HIV Ag/Ab Combo assay result andsupplemental assay results should be interpreted inconjunction with the patient's clinical presentation,history and other laboratory results. If the results areinconsistent with clinical evidence, additional testing issuggested to confirm the result. Blood Venous blood specimen / Unknown 04/29/2023 1:42 PM EST 04/29/2023 4:38 PM EST us Meli Fofana DO LAB BLOOD ORDERABLES Final R esult Performing Organization Address City/[facility]/ZIP Co de Phone Number [facility] [address] [place] [phone] * (ABNORMAL) Lipid Panel, Standard (04/29/2023 1:42 PM EST) Triglycerides 152(H) <150 mg/dL [facility] Comment:Desirable Triglyceri de: less than 150 mg/dLBorderline High Triglyceride 150-199 mg/dLHigh Triglyceride: 200-499 mg/dLVery High Triglyceride: greater than or equal to 5OO mg/dL Cholesterol 240(H) <200 mg/dL [facility] Comment:Desirable Cholestero l: less than 200 mg/dLBorderline High Cholesterol: 200-239 mg/dLHigh Cholesterol: greater than 239 mg/dL LDL Cholesterol Calculated 170(H) <100 mg/dL [facility] Comment:Desirable LDL: less than 100 mg/dLNear Optimal/Above Optimal LDL: 110- 129 mg/dLBorderline High LDL: 130-159 mg/dLHigh LDL: 160-189 mg/dLVery High LDL: greater than or equal to 190 mg/dL HDL Cholesterol 40(L) >40 mg/dL [facility] Comment:Desirable HDL: great er than 40 mg/dL Note: This HDL assay may give artificially low results in patients with liver disease. Blood Venous blood specimen / Unknown 04/29/2023 1:42 PM EST 04/29/2023 4:38 PM EST us Meli Fofana DO LAB BLOOD ORDERABLES Final R esult [facility] [address] [place] [phone] from Last 3 Months or Most Recently Relevant to Health Maintenance Insurance [facility] PPO [facility] DENTAL - HSN FULL (MEDICAID) Care Teams Patient Companion Relationship Specialty Start Date End Date Meli Fofana DO [address] [place] [phone] PCP - General Family Medicine 11/22/19
== END 2024-11-15 12:49 | disposition home or self-care (01) ==
LOC: HO.HMCFM 11:29
PROVIDERS: PCP Nurse Practitioner Family; Visit Provider Nurse Practitioner Family
DX: Z00.00 Encounter for general adult medical examination without abnormal findings (principal); M25.572 Pain in left ankle and joints of left foot; R03.0 Elevated blood-pressure reading, without diagnosis of hypertension; Z68.41 Body mass index [BMI] 40.0-44.9, adult; E66.01 Morbid (severe) obesity due to excess calories; G89.29 Other chronic pain; R79.89 Other specified abnormal findings of blood chemistry; E78.5 Hyperlipidemia, unspecified

== ENCOUNTER → 2024-11-15 11:27 | Outpatient (BNVA) | payer OTHER, SELFPAY | PROVIDERS: PCP Nurse Practitioner Family; Visit Provider Nurse Practitioner Family | DX: Z00.00 Encounter for general adult medical examination without abnormal findings (principal); R03.0 Elevated blood-pressure reading, without diagnosis of hypertension; M25.572 Pain in left ankle and joints of left foot; G89.29 Other chronic pain; R79.89 Other specified abnormal findings of blood chemistry; E78.5 Hyperlipidemia, unspecified; E66.01 Morbid (severe) obesity due to excess calories; Z68.41 Body mass index [BMI] 40.0-44.9, adult; Z13.30 Encounter for screening examination for mental health and behavioral disorders, unspecified | CPT/HCPCS: 96127; 99202; 99385 ==

== ENCOUNTER 2024-11-23 07:02 | Outpatient (AMB) | payer OTHER, SELFPAY ==
[2024-11-23 07:11] VITALS: BP 160/100; PULSE 85; TEMP 36.8; O2SAT 97
--- NOTE | 2024-11-23 07:11 | AM.OFFWIN_ITS ---
Intake Vital Signs 11/23/24 07:11 Weight 301 lb BP 160/100 H Blood Pressure Location Lt brachial Position Sitting Pulse 85 Pulse Source Pulse Oximeter Temp 98.2 F Temp Source Oral Pulse Oximetry (%) 97 Oxygen Delivery Method Room Air Intake Visit Reasons: EP infection in mouth? Intake Note: Patient present with broken tooth left side of mouth, questioning infection. Unable to be removed due to BP issues Patient Tobacco Use Status: Current everyday Tobacco user Road Repairer Required: No Allergies prednisone Allergy (Unknown, Verified 11/23/24 07:15) Unknown No Known Allergies Allergy (Verified 11/23/24 07:15) Do you need a note to return to daycare/school/sports/work: Yes HPI HPI Comments History of Present Illness Details History - The patient is a 34-year-old male pres enting with a dental abscess and elevated blood pressure. - The patient experiences pain on the le ft side of the mouth due to a broken tooth, leading to frequent use of ibuprofen and Advil for pain management. - The patient has a history of high bloo d pressure, currently measured at 160/100 mmHg, and is currently managing this with his PCP. He tells me he is trying to lose weight and he is doing labs for his doctor. His dentist would not remove the tooth with his elevated blood pressure. - The patient has been experiencing insu delvin changes and issues which are delaying his care at his dentist. His dentist will not prescribe him any antibiotics if he does not have insurance. He is scheduled to get insurance on December 05. Physical Exam General: Cooperative, healthy appearing, comfortable, no acute distress and well developed Orientation: Patient oriented x3 Limitations: No limitations Head: Normal to inspection Ears: Hearing grossly normal bilaterally Nose: Normal External nose present Face and sinus: Normal facial exam Mouth: Pain on the left side, broken tooth on the medial side of the 2nd to last tooth, bottom left Eyes: Appearance normal, both eyes and all related structures Neck: Normal visual inspection and Yes full ROM Respiratory: Normal respiratory effort and able to speak in complete sentences. Skin: no rashes or lesions noted Neuro: Patient oriented x3 Extremities: moving all extremities normally [facility] History (Updated 11/23/24 @ 07:25 by Ava Prado PA-C) Left ankle injury Asthma Surgical History (Updated 11/15/24 @ 12:00 by Lisa De Jesus MA) History of rhinoplasty Family History (Updated 11/15/24 @ 12:08 by Lisa De Jesus MA) Father Substance abuse High blood pressure High cholesterol Diabetes Mother High blood pressure Diabetes Cancer of nasal bone Maternal Grandmother High blood pressure High cholesterol Diabetes Maternal Grandfather High blood pressure High cholesterol Paternal Grandfather High blood pressure High cholesterol Paternal Grandmother High blood pressure High cholesterol Diabetes Social History (Updated 11/15/24 @ 11:52 by Lisa De Jesus MA) Housing: Apartment Alcohol intake: former Patient Tobacco Use Status: Current everyday Tobacco user Tobacco use type: Cigarette Cigarettes Per Day: 2 e-Cigarette/Vaping Use: Never Used Second Hand Smoke Exposure: No service: No Current occupational status: employed 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 Current occupational exposures/hazards: No Cognitive needs: No Hearing needs: No Vision needs: No Review of Systems Const All systems reviewed & are unremarkable except as noted in HPI and below Physical Exam Vital Signs: Last Vital Signs Temp 98.2 F 11/23/24 07:11 Pulse 85 11/23/24 07:11 BP 160/100 H 11/23/24 07:11 Pulse Ox 97 11/23/24 07:11 Oxygen Delivery Method Room Air 11/23/24 07:11 Assessment & Plan Assessment & Plan (1) Dental infection: Code(s): K04.7 - Periapical abscess without sinus Plan: Plan Patient was informed and verbally consented to the use of an ambient scribe for clinic note documentation during this visit Dental Abscess - Prescribed Augmentin (amoxicillin and clavulanate) to be taken every 12 hours for 7 days to address the infection. - Recommended the use of Aleve for pain management, as it lasts longer and requires less frequent dosing. (2) Elevated blood pressure reading without diagnosis of hypertension: Code(s): R03.0 - Elevated blood-pressure reading, without diagnosis of hypertension Plan: Hypertension - Advised to avoid salt intake and increase fluid consumption to manage blood pressure. - Advised elevated BP increases his risk for stroke. Recommended low/no salt intake, weight loss. - Recommended follow-up with primary care physician for ongoing management and potential adjustment of antihypertensive therapy. Medications: New amoxicillin-pot clavulanate 875-125 mg 1 tab PO Q12H 14 tabs 0RF Coding Level of Care Code Est Pt Level 4 (63592) Diagnoses Dental infection K04.7 Elevated blood pressure reading without diagnosis of hypertension R03.0
== END 2024-11-23 08:27 | disposition home or self-care (01) ==
PROVIDERS: PCP Nurse Practitioner Family; Visit Provider Physician Assistant
DX: K04.7 Periapical abscess without sinus (principal); R03.0 Elevated blood-pressure reading, without diagnosis of hypertension

== ENCOUNTER → 2024-11-23 07:02 | Outpatient (BNVA) | payer OTHER, SELFPAY | PROVIDERS: PCP Nurse Practitioner Family; Visit Provider Physician Assistant | DX: K04.7 Periapical abscess without sinus (principal); R03.0 Elevated blood-pressure reading, without diagnosis of hypertension | CPT/HCPCS: 99212 ==

== ENCOUNTER 2024-11-30 15:12 | Outpatient (REF) | payer OTHER, SELFPAY ==
--- NOTE | ~2024-11-30 | XR_ITS ---
EXAMINATION: XR ANKLE 3 OR MORE VIEWS LEFT HISTORY: M25.572 - Pain in left ankle and joints of left foot COMPARISON: Comparison is made with the prior examination dated 12/22/2022. FINDINGS: Three views of the left ankle are submitted. Osseous mineralization is normal. There is no fracture or dislocation. The joint spaces are preserved. The soft tissues are unremarkable. XR/XR ankle LT min 3V IMPRESSION: Unremarkable examination of the left ankle. Electronically signed by: Jh Ocampo MD 11/30/2024 03:35 PM EDT
--- OUTSIDE RECORDS SUMMARY | 2024-11-30 15:41 | XMS_ITS | Clinical Summary ---
Author Organization [employer] Address [address] [facility] [address] [place] [address] Care Team Providers Care Finished Goods Stock Clerk Name Role Phone Meli Fofana DO Primary Care Provider + [phone] Allergies Active Allergy Reactions Criticality Noted Date [...] with MH counselor Rafa Morgan (out of [place]) FU with PCP to address adjustment of [...] 10:59 AM EDT): - receiving testosterone from [employer] - will order labs - pt states he is doing Phlebotomy periodically Leg pain, anterior, left 10/02/2022 Assessment & Plan (12/29/2023 3:53 PM EDT): It seems to have been 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 Patient was discharged from [facility] after MRI leg was reviewed. He [...] Use Screening 2000 Family Planning (PISQ) 11/08/2003 HPV Vaccines (1 - Male 3-dose series) 11/08/2003 Hepatitis B Vaccines (1 of 3 - 19+ 3-dose series) 11/08/2007 Pneumococcal Vaccine: Pediatrics (0 to 5 Years) and At-Risk Patients (6 to 49) Years (1 of 2 - PCV) 11/08/2007 Dental X-Ray: Bitewings 01/03/2024 01/01/2023 COVID-19 Vaccine (3 - season) 2024 11/16/2020, 09/26/2020 Depression Screening 03/23/2024 [...] PM EST) Hepatitis C Antibody Nonreactive Nonreactive [facility] Comment:Antibodies to HCV no t detected; does not exclude early acuteHCV infection. 04/29/2023 1:42 PM EST 04/29/2023 4:[address] LAB BLOOD ORDERABLES Final R esult Performing Organization Address [facility]/ZIP Co de Phone Number [facility] [address] [place] [phone] [phone] * HIV-1/2 Antigen and Antibodies, Fourth Generation, with Reflexes (04/29/2023 1:42 PM EST) HIV AB/AG Nonreactive Nonreactive [facility] Comment:HIV-1 p24 Ag and/or HIV-1/HIV-2 Ab not detected.A test result that is nonreactive does not exclude thepossibility of exposure to or infection with HIV-1 and/orHIV-2. Nonreactive results in this assay for individualswith prior exposure to HIV-1 and/or HIV-2 may be due toantigen and antibody levels that are below the limit ofdetection of this assay.The [employer] HIV Ag/Ab Combo assay result andsupplemental assay results should be interpreted inconjunction with the patient's clinical presentation,history and other laboratory results. If the results areinconsistent with clinical evidence, additional testing issuggested to confirm the result. Blood Venous blood specimen / Unknown 04/29/2023 1:42 PM EST 04/29/2023 4:38 PM EST us Meli Fofana DO LAB BLOOD ORDERABLES Final R esult Performing Organization Address City/[facility]/ZIP Co de Phone Number [facility] [address] [place] [phone] * (ABNORMAL) Lipid Panel, Standard (04/29/2023 1:42 PM EST) Triglycerides 152(H) <150 mg/dL [facility] Comment:Desirable Triglyceri de: less than 150 mg/dLBorderline High Triglyceride 150-199 mg/dLHigh Triglyceride: 200-499 mg/dLVery High Triglyceride: greater than or equal to 5OO mg/dL Cholesterol 240(H) <200 mg/dL [facility] Comment:Desirable Cholestero l: less than 200 mg/dLBorderline High Cholesterol: 200-239 mg/dLHigh Cholesterol: greater than 239 mg/dL LDL Cholesterol Calculated 170(H) <100 mg/dL [facility] Comment:Desirable LDL: less than 100 mg/dLNear Optimal/Above Optimal LDL: 110- 129 mg/dLBorderline High LDL: 130-159 mg/dLHigh LDL: 160-189 mg/dLVery High LDL: greater than or equal to 190 mg/dL HDL Cholesterol 40(L) >40 mg/dL [facility] Comment:Desirable HDL: great er than 40 mg/dL Note: This HDL assay may give artificially low results in patients with liver disease. Blood Venous blood specimen / Unknown 04/29/2023 1:42 PM EST 04/29/2023 4:38 PM EST us Meli Fofana DO LAB BLOOD ORDERABLES Final R esult [facility] [address] [place] [phone] from Last 3 Months or Most Recently Relevant to Health Maintenance Insurance [facility] PPO [facility] DENTAL - HSN FULL (MEDICAID) Care Teams Finished Goods Stock Clerk Relationship Specialty Start Date End Date Meli Fofana DO [address] [place] [phone] PCP - General Family Medicine 11/22/19
== END 2024-11-30 15:13 | disposition home or self-care (01) ==
LOC: HO.HMGCX 15:12
PROVIDERS: PCP Nurse Practitioner Family; Visit Provider Nurse Practitioner Family
DX: M25.572 Pain in left ankle and joints of left foot (principal); G89.29 Other chronic pain
CPT/HCPCS: 73610

== ENCOUNTER → 2024-11-30 15:15 | Outpatient (BNV) | payer OTHER, SELFPAY | PROVIDERS: PCP Nurse Practitioner Family; Visit Provider Radiology Diagnostic Radiology | DX: M25.572 Pain in left ankle and joints of left foot (principal) | CPT/HCPCS: 73610 ==

== ENCOUNTER 2025-02-10 09:06 | Outpatient (REF) | payer OTHER, SELFPAY ==
--- OUTSIDE RECORDS SUMMARY | 2025-02-10 09:32 | XMS_ITS | Clinical Summary ---
Author Organization [employer] Address [address] [facility] [address] [place] [address] Care Team Providers Care Trimming Operator Name Role Phone Meli Fofana DO Primary Care Provider + [phone] Allergies Active Allergy Reactions Criticality Noted Date [...] MH counselor Rafa Morgan (out of [place]) FU with PCP to address adjustment of medication. Dyslipidemia 03/23/2023 Elevated blood pressure read ing in office without diagnosis of hypertension 01/02/2023 Assessment & Plan (01/02/2023 8:10 AM EDT): Patient with this for > 1 year He receives outside testosterone supplementation Needs CBC and CMP done, orders are in May need dose adjustment vs. 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 Patient was discharged from [facility] after MRI leg was reviewed. He wants [...] PCV) 11/08/2007 Dental X-Ray: [facility]wings 01/03/2024 01/01/2023 Depression Screening 03/23/2024 03/23/2023, 03/23/20 23 SDOH Screening 03/23/2024 03/23/2023 Tobacco Screening 07/02/2024 07/02/2023 COVID-19 Vaccine ( - season) 2025 11/16/2020, 09/26/2020 Influenza Vaccine (#1) 2025 Lipid Panel 04/29/2028 [...] PM EST) Hepatitis C Antibody Nonreactive Nonreactive [facility] Comment:Antibodies to HCV no t detected; does not exclude early acuteHCV infection. 04/29/2023 1:42 PM EST 04/29/2023 4:38 PM EST Meli Fofana LAB BLOOD ORDERABLES Final R esult Performing Organization Address City/[facility]/ZIP Co de Phone Number [facility] [address] [place] [phone] * HIV-1/2 Antigen and Antibodies, Fourth Generation, with Reflexes (04/29/2023 1:42 PM EST) HIV AB/AG Nonreactive Nonreactive [facility] Comment:HIV-1 p24 Ag and/or HIV-1/HIV-2 Ab not detected.A test result that is nonreactive does not exclude thepossibility of exposure to or infection with HIV-1 and/orHIV-2. Nonreactive results in this assay for individualswith prior exposure to HIV-1 and/or HIV-2 may be due toantigen and antibody levels that are below the limit ofdetection of this assay.The Tagasauris HIV Ag/Ab Combo assay result andsupplemental assay results should be interpreted inconjunction with the patient's clinical presentation,history and other laboratory results. If the results areinconsistent with clinical evidence, additional testing issuggested to confirm the result. Blood Venous blood specimen / Unknown 04/29/2023 1:42 PM EST 04/29/2023 4:38 PM EST us Meli Worleyyue DO LAB BLOOD ORDERABLES Final R esult Performing Organization Address City/[facility]/ZIP Co de Phone Number [facility] [address] [place] [phone] * (ABNORMAL) Lipid Panel, Standard (04/29/2023 1:42 PM EST) Triglycerides 152(H) <150 mg/dL [facility] Comment:Desirable Triglyceri de: less than 150 mg/dLBorderline High Triglyceride 150-199 mg/dLHigh Triglyceride: 200-499 mg/dLVery High Triglyceride: greater than or equal to 5OO mg/dL Cholesterol 240(H) <200 mg/dL [facility] Comment:Desirable Cholestero l: less than 200 mg/dLBorderline High Cholesterol: 200-239 mg/dLHigh Cholesterol: greater than 239 mg/dL LDL Cholesterol Calculated 170(H) <100 mg/dL [facility] Comment:Desirable LDL: less than 100 mg/dLNear Optimal/Above Optimal LDL: 110- 129 mg/dLBorderline High LDL: 130-159 mg/dLHigh LDL: 160-189 mg/dLVery High LDL: greater than or equal to 190 mg/dL HDL Cholesterol 40(L) >40 mg/dL [facility] Comment:Desirable HDL: great er than 40 mg/dL Note: This HDL assay may give artificially low results in patients with liver disease. Blood Venous blood specimen / Unknown 04/29/2023 1:42 PM EST 04/29/2023 4:38 PM EST us Meli Fofana DO LAB BLOOD ORDERABLES Final R esult [facility] [address] [place] [phone] from Last 3 Months or Most Recently Relevant to Health Maintenance Insurance [facility] FULL (MEDICAID) Care Teams Trimming Operator Relationship Specialty Start Date End Date Meli Fofana DO [address] [place] [phone] PCP - General Family Medicine 11/22/19
--- OUTSIDE RECORDS SUMMARY | 2025-02-10 09:32 | XMS_ITS | Clinical Summary ---
Author Organization [address] [facility] Address [address] [place] [address] Phone Care Team Providers Care Stage Builder Name Role Phone Amanuel King FREDDY Primary Care Provider Allergies Active Allergy Reactions Criticality Noted Date Comments Prednisolone Itching 03/23/2023 Prednisone 12/28/2024 Medications No known medications Encounters Date Type Department Care Team Description 01/25/2025 Telephone Orthopedic Surgery [facility] [address] [phone] Darrell Mukherjee DPM 01/12/2025 9:15 AM EDT Office Visit Orthopedic [facility] [address] [phone] Darrell Mukherjee DPKrissy Pain in left ankle and joints of left foot (Primary Dx); Rupture of peroneal tendon of left foot; Disorder of ligament of ankle, left; Equinus contracture of left ankle 01/05/2025 7:22 PM EDT - 01/05/2025 11:59 PM EDT Hospital Encounter [facility] MRI [address] [place] [phone] Rupture of peroneal tendon of left foot Discharge Disposition: Home or Self Care 01/02/2025 Telephone Orthopedic Surgery [facility] [address] [phone] Darrell Mukherjee DPM 12/28/2024 2:45 PM EDT Consult Orthopedic [facility] [address] [phone] Darrell Mukherjee, DPM Rupture of peroneal tendon of left foot (Primary Dx); Disorder of ligament of ankle, left; Pain in left ankle and joints of left foot; Other chronic pain from Last 3 Months Social History Tobacco Use Types Packs/Day Years Used Date Smoking Tobacco: Never Assessed Sex and Gender Information Value Date Recorded Sex Assigned at Not on file Legal Sex Male 7:28 AM EDT Gender Identity Not on file Sexual Orientation Not on file Plan of Treatment Upcoming Encounters Date Type Department Care Team (Late st Contact Info) Description 03/16/2025 4:30 PM EST Evaluation Outpatient Rehabilitation [address] [phone] Wilton Muñiz, PT Health Maintenance Due Date Last Done Comments Hepatitis B Vaccines (1 of 3 - 19+ 3-dose series) 11/08/2007 HPV Vaccines (1 - 3-dose SCD M series) 11/08/2015 Depression Screening 05/11/2024 Social Influencers of Health Screening 12/03/2024 COVID-19 Vaccine (3 - 2024-2 6 season) 2025 11/16/2020, 09/26/2020 Influenza Vaccine (#1) 2025 Cholesterol Screening (Lipid Panel) 04/29/2028 04/29/2023 DTaP,Tdap,and Td Vaccines (2 - Td or Tdap) 03/06/2032 03/06/2022 RSV Immunization Adult Patients (1 - 1-dose 75+ series) 11/08/2063 HIV Screening Completed 04/29/2023 Hepatitis C Screening Completed 04/29/2023 HIB Vaccines Aged Out No longer eligi ble based on patient's age to complete this topic Hepatitis A Vaccines Aged Out No long er eligible based on patient's age to complete this topic IPV Vaccines Aged Out No longer eligi ble based on patient's age to complete this topic MMR Vaccines Aged Out No longer eligi ble based on patient's age to complete this topic Meningococcal ACWY Vaccine Aged Out N o longer eligible based on patient's age to complete this topic Meningococcal B Vaccine Aged Out No l onger eligible based on patient's age to complete this topic Pneumococcal Vaccine: Pediatrics (0 to 5 Years) and At-Risk Patients (6 to 49 Years) Aged Out No longer eligible b ased on patient's age to complete this topic RSV Immunization Patients Under 20 months Aged Out No longer eligible b ased on patient's age to complete this topic Varicella Vaccines Aged Out No longer eligible based on patient's age to complete this topic Procedures Procedure Name Priority Date/Time Associated Diagnosis Comments MR FOOT WO CONTRAST LEFT Routine 01/05/2025 8:54 PM EDT Rupture of peroneal tendon of left foot XR ANKLE 3+ VIEWS LEFT Routine 12/28/2024 3:39 PM EDT Pain in left ankle and joints of left foot XR FOOT 3+ VIEWS LEFT Routine 12/28/2024 3:39 PM EDT Pain in left ankle and joints of left foot from Last 3 Months Results * MR Foot wo Contrast Left (01/05/2025 8:54 PM EDT) Anatomical Region Laterality Modality Lower Extremities, Foot Left Magnetic Resonance 01/10/2025 4:47 AM EDT Impressions 01/10/2025 4:52 AM EDT 1. Findings suspicious for partial thickness tearing of the peroneus brevis tendon 2. Mild peroneus longus tendinosis 3. Small Giuliano deformity with associated retrocalcaneal bursal fluid 4. 5 x 4 mm osteochondral lesion along the lateral talar dome -------- FINAL REPORT -------- Dictated By: Olga Spivey Dictated Date: 01/10/2025 04:47 ET Assigned Physician: Olga Spivey Reviewed and Electronically Signed By: Olga Spivey Signed Date: 01/10/2025 04:52 ET Workstation ID: [id number] Transcribed By: Self Edit Transcribed Date: 01/10/2025 04:47 ET Narrative 01/10/2025 4:52 AM EDT INDICATION: Concern for peroneal tendon rupture, lt foot pain COMPARISON: None TECHNIQUE: Multiplanar, multisequence MRI was performed of the left foot without intravenous contrast FINDINGS: Bone: 5 x 4 mm osteochondral lesion along the lateral talar dome. No acute fracture or dislocation. Achilles tendon enthesophyte formation. Degenerative changes with hypertrophic lipping along the anterior and posterior tibiotalar articulation as well as the dorsal talonavicular articulation. Soft Tissues: There is a marker at the site of patient's pain along the lateral aspect of the left foot. Deep to the marker, Chevron configuration of the peroneus brevis tendon suspicious for partial thickness tearing. Mild peroneus longus tendinosis. Achilles tendon is intact. Trace retrocalcaneal bursal fluid with a Giuliano deformity. Anterior extensor, posterior flexor tendons are intact. Small amount of left ankle joint fluid. The sinus Tarsi and tarsal tunnel are unremarkable. Plantar fascia is unremarkable. Procedure Note Olga Spivey MD - 01/10/2025 INDICATION: Concern for peroneal tendon rupture, lt foot pain COMPARISON: None TECHNIQUE: Multiplanar, multisequence MRI was performed of the left footwithout intravenous contrast FINDINGS: Bone: 5 x 4 mm osteochondral lesion along the lateral talar dome. Noacute fracture or dislocation. Achilles tendon enthesophyte formation.Degenerative changes with hypertrophic lipping along the anterior andposterior tibiotalar articulation as well as the dorsal talonaviculararticulation. Soft Tissues: There is a marker at the site of patient's pain along thelateral aspect of the left foot. Deep to the marker, Chevronconfiguration of the peroneus brevis tendon suspicious for partialthickness tearing. Mild peroneus longus tendinosis. Achilles tendon isintact. Trace retrocalcaneal bursal fluid with a Giuliano deformity. Anterior extensor, posterior flexor tendons are intact. Small amount of left ankle joint fluid. The sinus Tarsi and tarsal tunnelare unremarkable. Plantar fascia is unremarkable. IMPRESSION: 1. Findings suspicious for partial thickness tearing of the peroneusbrevis tendon 2. Mild peroneus longus tendinosis 3. Small Giuliano deformity with associated retrocalcaneal bursal fluid 4. 5 x 4 mm osteochondral lesion along the lateral talar dome -------- FINAL REPORT -------- Dictated By: Allyssa, Olga Dictated Date: 01/10/2025 04:47 ET Assigned Physician: Olga Spivey Reviewed and Electronically Signed By: Olga Spivey Signed Date: 01/10/2025 04:52 ET Workstation ID: [id number] Transcribed By: Self Edit Transcribed Date: 01/10/2025 04:47 ET Darrell Roberts Yaz DPM IMG MRI PROCEDURES Final Re sult * XR Ankle 3+ Views Left (12/28/2024 3:39 PM EDT) Anatomical Region Laterality Modality Lower Extremities, Ankle Left Compute d Radiography Narrative 12/28/2024 4:22 PM EDT Ankle mortise viewed and shows no signs of arthritis or sclerosis about the joint spaces. Tib-fib overlap noted to be within normal limits. No talar dome lesions or osteolytic signs through the ankle at the medial or lateral aspect. No signs of dislocation or fracture. Joint spaces are preserved and calcaneal inclination as well as Shonda's angle are within normal. Darrell Roberts Yaz DPM IMG XR PROCEDURES Final Res ult * XR Foot 3+ Views Left (12/28/2024 3:39 PM EDT) Anatomical Region Laterality Modality Lower Extremities, Foot Left Computed Radiography Narrative 12/28/2024 4:22 PM EDT Left foot 3 views weightbearing:Radiographs taken and reviewed. No evidence of jaswant abnormality noted. No evidence of fracture or dislocation noted. Mild narrowing of first metatarsal phalangeal joint appreciated. No arthrosis noted to dorsal midfoot. No hammered digits noted to interphalangeal joints. No increase in metatarsal angle between 1st and 2nd ray. Accessory ossicles noted. No evidence of foreign body. No evidence of gas or soft tissue. No evidence of cortical erosion noted. Darrell Roberts Yaz DPM IMG XR PROCEDURES Final Res ult from Last 3 Months Insurance [facility] Care Teams Stage Builder Relationship Specialty Start Date End Date Amanuel King FNP [address] [place] [phone] PCP - General Family Medicine 12/02/24
[2025-02-10 10:10] LABS: MANUAL DIFF FLAG NO
[2025-02-10 10:17] LABS: Appearance Urine Clear; Glucose Urine UA Negative (Negative); PH 6.5 (5.0-9.0); Specific Gravity - Urine 1.025 (1.005-1.025)
[2025-02-10 10:30] LABS: Hematocrit 47.7 % (42.0-52.0); Hemoglobin 15.4 g/dl (14.0-18.0); Imm Gran Abs Auto 0.02 X10*3/uL (0.00-0.03); Imm Gran Pct Auto 0.3 % (0.0-0.4); Lymphocytes Absolute Auto 2.7 X10*3/uL (1.2-4.9); Mean Corpuscular HGB Conc 32.3 g/dl (31.0-36.0); Mean Corpuscular Hemoglobin 27.5 pg (27.0-33.0); Mean Corpuscular Volume 85.3 fL (80.0-98.0); NRBC Abs Auto 0.000 X10*3/uL (0.0-0.012); NRBC Pct Auto 0.0 /100WBC (0.0-0.2); Platelet Count 266 X10*3/uL (160-400); Red Blood Count 5.59 X10*6/uL (4.60-5.80); White Blood Count 7.1 X10*3/uL (4.8-10.8)
[2025-02-10 10:42] LABS: Microalbum/Creatinine Ratio Ur 16.5 ug/mg cr (<30)
[2025-02-10 11:21] LABS: Alanine Aminotransferase 43 U/L (0-40); Albumin Level 4.2 g/dL (3.5-5.0); Alkaline Phosphatase 88 U/L (39-117); Anion Gap 10 (12-20); Aspartate Amino Transferase 28 U/L (5-37); Blood Urea Nitrogen 12 mg/dL (9-16); Calcium 8.9 mg/dL (8.4-10.2); Carbon Dioxide 30 mmol/L (22-29); Chloride 104 mmol/L (96-108); Cholesterol 222 mg/dL (<200); Estimated Glomerular Filt Rate > 60; HDL Cholesterol 31 mg/dL (>40); Potassium 4.6 mmol/L (3.3-5.1); Sodium 139 mmol/L (135-145); Total Protein 6.7 g/dL (6.5-8.0); Triglycerides 137 mg/dL (<150)
[2025-02-19 05:23] LABS: Testosterone, Free 55.6 pg/mL (35.0-155.0)
== END 2025-02-10 09:07 | disposition home or self-care (01) ==
LOC: HO.HMGCLDS 09:06
PROVIDERS: PCP Nurse Practitioner Family; Visit Provider Nurse Practitioner Family
DX: Z00.00 Encounter for general adult medical examination without abnormal findings (principal); R79.89 Other specified abnormal findings of blood chemistry
CPT/HCPCS: 36415; 80053; 80061; 81003; 82043; 82306; 82570; 84402; 84403; 84443; 85025

== ENCOUNTER 2025-02-14 15:02 | Outpatient (AMB) | payer OTHER, SELFPAY ==
--- NOTE | 2025-02-14 15:08 | MHC.PC.OV ---
Vital Signs 02/14/25 15:14 Height 5 ft 10 in Weight 306 lb 2 oz BMI 43.9 BP 142/96 H Blood Pressure Location Rt brachial Position Sitting Respiration 16 Pulse 83 Pulse Source Pulse Oximeter Temp 98.3 F Temp Source Oral Pulse Oximetry (%) 100 Oxygen Delivery Method Room Air Intake Visit Reasons: 1 mos PCP HTN, labs review / Rescheduled from12/19 Intake Note: patient here for 1 month follow up for HTN and labs review Quality Tech Required: No Allergies prednisone Allergy (Unknown, Verified 02/14/25 15:24) Unknown No Known Allergies Allergy (Verified 02/14/25 15:24) Medication List - Last Reconciled 02/14/25 by Amanuel King CNP testosterone cypionate (Depo-Testosterone) 200 mg subcut Q5D Tobacco use date assessed: 02/14/25 Dental Screening Dental Screen Date: 02/14/25 Did you have a dental visit in the last 12 months?: Yes Did you have a dental problem in the last 6 months where you did not have access to dental care?: No Was dental information given to patient?: Patient has dentist HPI HPI Comments History of Present Illness Details 34-year-old male presents for elevated blood pressure and recent labs review follow-up. He notes that he consumes significant amount of meat, cheese, whole produce/milk, and salt. He admits to regular exercise. He reports intermittent pain/infection to his left lower molar for which he requests antibiotic. His dentist would not extracted tooth due to elevated blood pressure readings. He needs clearance from his PCP for extraction. Denies current dental pain. He notes that he did not fast for his recent blood work. [facility] Medical History (Updated 02/14/25 @ 15:59 by Amanuel King CNP) Left ankle injury Asthma Surgical History (Updated 11/15/24 @ 12:00 by Lisa De Jesus MA) History of rhinoplasty Family History (Updated 11/15/24 @ 12:08 by Lisa De Jesus MA) Father Substance abuse High blood pressure High cholesterol Diabetes Mother High blood pressure Diabetes Cancer of nasal bone Maternal Grandmother High blood pressure High cholesterol Diabetes Maternal Grandfather High blood pressure High cholesterol Paternal Grandfather High blood pressure High cholesterol Paternal Grandmother High blood pressure High cholesterol Diabetes Social History (Updated 11/15/24 @ 11:52 by Lisa De Jesus MA) Housing: Apartment Alcohol intake: former Patient Tobacco Use Status: Current everyday Tobacco user Tobacco use type: Cigarette Cigarettes Per Day: 2 e-Cigarette/Vaping Use: Never Used Second Hand Smoke Exposure: No service: No Current occupational status: employed 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 Current occupational exposures/hazards: No Cognitive needs: No Hearing needs: No Vision needs: No Questionnaire Thrive Questionnaire Date Thrive assessed: 11/15/24 I am a: Patient What is your living situation today?: I have a steady place to live Within the past 12 months, did the food you bought not last and you didn't have the money to get more?: I choose not to answer this question Within the past 12 months, did you worry whether your food would run out before you got money to buy more?: I choose not to answer this question Do you have trouble paying for medicines?: I choose not to answer this question Do you have trouble getting transportation to medical appointments?: I choose not to answer this question Do you have trouble paying your heating and electricity bill?: I choose not to answer this question Do you have trouble taking care of your child, family member or friend?: I choose not to answer this question Do you have trouble with day-to-day activities such as bathing, preparing meals, shopping, managing finances, etc.?: I choose not to answer this question Are you currently unemployed and looking for a job?: I choose not to answer this question Are you interested in more education?: I choose not to answer this question Please select the resources that you would like help with: None Currently or been in a relationship where the following occur: I choose not to answer THRIVE Score: 0 AUDIT C Alcohol Use Questionnaire (AUDIT-C) 3. How often do you have six or more drinks on one occasion?: Never Total Score: 0 BASIM-7 AMB Questionnaire BASIM-7 Date BASIM - 7 assessed: 11/15/24 Source: Developed by Drs. Jh Alexander, Elise Obando, Pk Ballard and colleagues, with an educational juan r from [employer]. Review of Systems Const Details: Const Denies chills, Denies fatigue, Denies fever(s), Denies headache(s) and Denies weakness ENT Reports as per HPI Card Denies chest pain, Denies lightheadedness, Denies dyspnea and Denies other (Palpitations) Resp Denies cough, Denies dyspnea, Denies wheezing and Denies other ( shortness of breath) GI Denies abdominal pain, Denies melena, Denies hematochezia, Denies change in bowel habits, Denies dyspepsia and Denies nausea Denies hematuria and Denies dysuria Musc Denies abnormal gait, Denies myalgias, Denies arthralgias, Denies numbness and Denies tingling Skin/Breast Denies rash, Denies unusual bruising and Denies wounds Neuro Denies abnormal gait, Denies dizziness, Denies headache(s), Denies memory loss, Denies numbness, Denies Sensory deficit (Neuro), Denies tingling and Denies weakness Psych Denies anxiety, Denies depression, Denies memory loss Endo Denies cold intolerance, Denies fatigue, Denies heat intolerance, Denies polydipsia and Denies polyuria Aller/Immun Denies wheezing Physical exam (Primary Care) Vital Signs: Last Vital Signs Temp 98.3 F 02/14/25 15:14 Pulse 83 02/14/25 15:14 Resp 16 02/14/25 15:14 BP 140/92 H 02/14/25 15:14 Pulse Ox 100 02/14/25 15:14 Oxygen Delivery Method Room Air 02/14/25 15:14 BMI result Body Mass Index 43.9 Tobacco/Smoking Status: Tobacco use Status Tobacco use date assessed 02/14/25 02/14/25 15:16 Patient Tobacco Use Status Current everyday Tobacco 02/14/25 15:10 Tobacco use type Cigarette 02/14/25 15:10 e-Cigarette/Vaping Use Never Used 02/14/25 15:10 Thrive Assessment: Date of Thrive Assessment Date Thrive assessed 11/15/24 02/14/25 15:10 Currently or been in a relationship where the following occur: I choose not to answer Const Other: General: no acute distress and well developed Nutritional Appearance: well nourished Orientation/consciousness: patient oriented x3 HENMT Head: Yes normocephalic and Yes atraumatic Eyes General: appearance normal, both eyes and all related structures Pupils: Equal, round and reactive pupils present EOM: EOMs intact bilaterally Mouth: Normal oral exam. No overt infection Resp Effort & Inspection: normal respiratory effort Auscultation: clear to auscultation bilaterally Cardio Rate: regular rate Rhythm: regular rhythm Heart sounds: S1 normal heart sound present, S2 normal heart sound present, no gallops, no murmurs and no rubs GI Palpation (GI): No Abdominal aortic bruit present, Soft to palpation, nontender, No hepatosplenomegaly present and No Rebound tenderness present Auscultation: normal bowel sounds General: Yes no CVA tenderness Back/Spine/Pelvis Back: no CVA tenderness Cervical Spine: cervical ROM normal and No Cervical spine tenderness Thoracic/Lumbar Spine: thoraco-lumbar ROM normal, No pain with thoraco-lumbar ROM, No thoracic spinal tenderness and No lumbar spinal tenderness Extrem General: Yes normal to inspection, No edema and No calf tenderness Skin General: warm and dry. Normal skin color. Normal skin turgor Neuro General: patient oriented x3, gait normal and no focal neuro deficit Cranial nerves: Yes Equal, round and reactive pupils present Cognition (Neuro): normal cognition Gait exam (Neuro): Normal gait present Sensory Exam: No Sensory deficit (Neuro) Psych Appearance: grossly normal Affect: normal affect Attitude: cooperative Thought process: Normal thought process present Coding Level of Care Code Est Pt Level 4 (07063) Diagnoses Hyperlipidemia E78.5 Elevated fasting glucose R73.01 Hypertension I10 Toothache K08.89 Assessment & Plan Assessment & Plan (1) Hyperlipidemia: Code(s): E78.5 - Hyperlipidemia, unspecified Category: Medical Plan: Recent total cholesterol and LDL levels are elevated, 222 and 164 respectively, HDL is low, 31. Advised to limit foods high in saturated fat and avoid foods high in trans fat. Routine exercise encouraged. Fast for 10-12 hours, may drink water, and perform lipid panel blood work a few days before next visit. Follow-up for telehealth visit in 2 months. Return sooner with symptoms or concerns. Verbalized understanding and agreed with the plan. (2) Elevated fasting glucose: Code(s): R73.01 - Impaired fasting glucose Category: Medical Plan: Recent fasting glucose is elevated, 128. He did not fast for performing blood work. Healthy diet encouraged. Will recheck fasting glucose and make changes as needed. Verbalized understanding and agreed with the plan. (3) Hypertension: Code(s): I10 - Essential (primary) hypertension Category: Medical Plan: Resting blood pressure is 142/96, above goal of less than 140/90. Amlodipine 5 mg daily ordered; advised to take as prescribed. Low-sodium diet encouraged. Follow-up in 1 week or sooner with symptoms or concerns. Verbalized understanding and agreed with the plan. (4) Toothache: Code(s): K08.89 - Other specified disorders of teeth and supporting structures Category: Medical Plan: He reports intermittent pain/infection to his left lower molar for which he requests antibiotic. His dentist would not extracted tooth due to elevated blood pressure readings. He needs clearance from his PCP for extraction. Denies current dental pain. Normal oral exam. No overt infection. Augmentin as prescribed. May take Tylenol ibuprofen as needed. Follow-up as needed. Verbalized understanding and agreed with the plan. Orders: Orders Glucose Fasting Today R73.01 - Impaired fasting glucose Lipid Panel 2 Months I10 - Essential (primary) hypertension Medications: New amlodipine 5 mg PO DAILY 30 tabs 3RF 30 days Refilled amoxicillin-pot clavulanate 875-125 mg 1 tab PO Q12H 14 tabs 0RF
[2025-02-14 15:14] VITALS: BP 142/96; PULSE 83; RESP 16; TEMP 36.8; O2SAT 100; BMI 43.9
--- OUTSIDE RECORDS SUMMARY | 2025-02-14 18:18 | XMS_ITS | Clinical Summary ---
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 Patient was discharged from [facility] after MRI leg was reviewed. He [...] PM EST) Hepatitis C Antibody Nonreactive Nonreactive [facility] Comment:Antibodies to HCV no t detected; does not exclude early acuteHCV infection. 04/29/2023 1:42 PM EST 04/29/2023 4:38 PM EST Meli Fofana LAB BLOOD ORDERABLES Final R esult Performing Organization Address City/[facility]/ZIP Co de Phone Number [facility] [address] [place] [address] [phone] * HIV-1/2 Antigen and Antibodies, Fourth Generation, with Reflexes (04/29/2023 1:42 PM EST) HIV AB/AG Nonreactive Nonreactive [facility] Comment:HIV-1 p24 Ag and/or HIV-1/HIV-2 Ab not detected.A test result that is nonreactive does not exclude thepossibility of exposure to or infection with HIV-1 and/orHIV-2. Nonreactive results in this assay for individualswith prior exposure to HIV-1 and/or HIV-2 may be due toantigen and antibody levels that are below the limit ofdetection of this assay.The Polimax HIV Ag/Ab Combo assay result andsupplemental assay results should be interpreted inconjunction with the patient's clinical presentation,history and other laboratory results. If the results areinconsistent with clinical evidence, additional testing issuggested to confirm the result. Blood Venous blood specimen / Unknown 04/29/2023 1:42 PM EST 04/29/2023 4:38 PM EST us Meli Worleyyue DO LAB BLOOD ORDERABLES Final R esult Performing Organization Address City/[facility]/ZIP Co de Phone Number [facility] [address] [place] [phone] * (ABNORMAL) Lipid Panel, Standard (04/29/2023 1:42 PM EST) Triglycerides 152(H) <150 mg/dL [facility] Comment:Desirable Triglyceri de: less than 150 mg/dLBorderline High Triglyceride 150-199 mg/dLHigh Triglyceride: 200-499 mg/dLVery High Triglyceride: greater than or equal to 5OO mg/dL Cholesterol 240(H) <200 mg/dL [facility] Comment:Desirable Cholestero l: less than 200 mg/dLBorderline High Cholesterol: 200-239 mg/dLHigh Cholesterol: greater than 239 mg/dL LDL Cholesterol Calculated 170(H) <100 mg/dL [facility] Comment:Desirable LDL: less than 100 mg/dLNear Optimal/Above Optimal LDL: 110- 129 mg/dLBorderline High LDL: 130-159 mg/dLHigh LDL: 160-189 mg/dLVery High LDL: greater than or equal to 190 mg/dL HDL Cholesterol 40(L) >40 mg/dL [facility] Comment:Desirable HDL: great er than 40 mg/dL Note: This HDL assay may give artificially low results in patients with liver disease. Blood Venous blood specimen / Unknown 04/29/2023 1:42 PM EST 04/29/2023 4:38 PM EST us Meli Fofana DO LAB BLOOD ORDERABLES Final R esult [facility] [address] [place] [phone] from Last 3 Months or Most Recently Relevant to Health Maintenance Insurance [facility] PPO [facility] - HSN FULL (MEDICAID) Care Teams Tool Adjuster Relationship Specialty Start Date End Date Meli Fofana DO [address] [place] [id number] PCP - General Family Medicine 11/22/19
== END 2025-02-14 15:44 | disposition home or self-care (01) ==
LOC: HO.HMCFM 15:03
PROVIDERS: PCP Nurse Practitioner Family; Visit Provider Nurse Practitioner Family
DX: E78.5 Hyperlipidemia, unspecified (principal); R73.01 Impaired fasting glucose; I10 Essential (primary) hypertension; K08.89 Other specified disorders of teeth and supporting structures

== ENCOUNTER → 2025-02-14 15:02 | Outpatient (BNVA) | payer OTHER, SELFPAY | PROVIDERS: PCP Nurse Practitioner Family; Visit Provider Nurse Practitioner Family | DX: I10 Essential (primary) hypertension (principal); R73.01 Impaired fasting glucose; K08.89 Other specified disorders of teeth and supporting structures; E78.5 Hyperlipidemia, unspecified | CPT/HCPCS: 99212 ==

== ENCOUNTER 2025-03-03 12:58 | Outpatient (AMB) | payer OTHER, SELFPAY ==
--- NOTE | 2025-03-03 13:00 | MHC.PC.OV ---
Vital Signs 03/03/25 13:09 03/03/25 13:28 Height 5 ft 10 in Weight 302 lb 8 oz BMI 43.4 BP 149/88 H 144/100 H Blood Pressure Location Rt brachial Rt brachial Position Sitting Sitting Respiration 16 Pulse 96 Pulse Source Pulse Oximeter Temp 97.8 F Temp Source Oral Pulse Oximetry (%) 99 Oxygen Delivery Method Room Air Intake Visit Reasons: Follow up htn Intake Note: patient here for follow up on HTN and dental forms. Tying In Machine Operator Required: No Allergies prednisone Allergy (Unknown, Verified 03/03/25 13:25) Unknown No Known Allergies Allergy (Verified 03/03/25 13:25) Medication List - Last Reconciled 03/03/25 by Amanuel King CNP amlodipine 5 mg PO DAILY 30 days amoxicillin-pot clavulanate 875-125 mg 1 tab PO Q12H anastrozole 1 mg PO 2XW testosterone cypionate (Depo-Testosterone) 200 mg subcut Q5D Tobacco use date assessed: 03/03/25 Dental Screening Dental Screen Date: 03/03/25 Did you have a dental visit in the last 12 months?: Yes Did you have a dental problem in the last 6 months where you did not have access to dental care?: No Was dental information given to patient?: Patient has dentist HPI HPI Comments History of Present Illness Details 34-year-old male presents for hypertension follow-up. He admits to taking amlodipine as prescribed without adverse reactions. He continues to consume significant amount of salt. He has been lifting weights but not doing cardio. He offers no complaints and denies acute symptoms at this time. [facility] Medical History (Updated 02/14/25 @ 15:59 by Amanuel King CNP) Left ankle injury Asthma Surgical History (Updated 11/15/24 @ 12:00 by CHAD Burnham) History of rhinoplasty Family History (Updated 11/15/24 @ 12:08 by CHAD Burnham) Father Substance abuse High blood pressure High cholesterol Diabetes Mother High blood pressure Diabetes Cancer of nasal bone Maternal Grandmother High blood pressure High cholesterol Diabetes Maternal Grandfather High blood pressure High cholesterol Paternal Grandfather High blood pressure High cholesterol Paternal Grandmother High blood pressure High cholesterol Diabetes Social History (Updated 11/15/24 @ 11:52 by CHAD Burnham) Housing: Apartment Alcohol intake: former Patient Tobacco Use Status: Former Tobacco user Tobacco use type: Cigarette Cigarettes Per Day: 2 e-Cigarette/Vaping Use: Never Used Second Hand Smoke Exposure: No service: No Current occupational status: employed 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 Current occupational exposures/hazards: No Cognitive needs: No Hearing needs: No Vision needs: No Questionnaire Thrive Questionnaire Date Thrive assessed: 11/15/24 I am a: Patient What is your living situation today?: I have a steady place to live Within the past 12 months, did the food you bought not last and you didn't have the money to get more?: I choose not to answer this question Within the past 12 months, did you worry whether your food would run out before you got money to buy more?: I choose not to answer this question Do you have trouble paying for medicines?: I choose not to answer this question Do you have trouble getting transportation to medical appointments?: I choose not to answer this question Do you have trouble paying your heating and electricity bill?: I choose not to answer this question Do you have trouble taking care of your child, family member or friend?: I choose not to answer this question Do you have trouble with day-to-day activities such as bathing, preparing meals, shopping, managing finances, etc.?: I choose not to answer this question Are you currently unemployed and looking for a job?: I choose not to answer this question Are you interested in more education?: I choose not to answer this question Please select the resources that you would like help with: None Currently or been in a relationship where the following occur: I choose not to answer THRIVE Score: 0 BASIM-7 AMB Questionnaire BASIM-7 Date BASIM - 7 assessed: 11/15/24 Source: Developed by Drs. Jh Alexander, Elise Obando, Pk Ballard and colleagues, with an educational juan r from Recommend. Review of Systems Const Details: Const Denies chills, Denies fatigue, Denies fever(s), Denies headache(s) and Denies weakness ENT Denies dizziness and Denies headache(s) Card Denies chest pain, Denies lightheadedness, Denies dyspnea and Denies other (Palpitations) Resp Denies cough, Denies dyspnea, Denies wheezing and Denies other ( shortness of breath) GI Denies abdominal pain, Denies melena, Denies hematochezia, Denies change in bowel habits, Denies dyspepsia and Denies nausea Denies hematuria and Denies dysuria Musc Denies abnormal gait, Denies myalgias, Denies arthralgias, Denies numbness and Denies tingling Skin/Breast Denies rash, Denies unusual bruising and Denies wounds Neuro Denies abnormal gait, Denies dizziness, Denies headache(s), Denies memory loss, Denies numbness, Denies Sensory deficit (Neuro), Denies tingling and Denies weakness Psych Denies anxiety, Denies depression, Denies memory loss Endo Denies cold intolerance, Denies fatigue, Denies heat intolerance, Denies polydipsia and Denies polyuria Aller/Immun Denies wheezing Physical exam (Primary Care) Vital Signs: Last Vital Signs Temp 97.8 F 03/03/25 13:09 Pulse 96 03/03/25 13:09 Resp 16 03/03/25 13:09 BP 149/88 H 03/03/25 13:09 Pulse Ox 99 03/03/25 13:09 Oxygen Delivery Method Room Air 03/03/25 13:09 BMI result Body Mass Index 43.4 Tobacco/Smoking Status: Tobacco use Status Tobacco use date assessed 03/03/25 03/03/25 13:08 Patient Tobacco Use Status Former Tobacco user 03/03/25 13:08 Tobacco use type Cigarette 03/03/25 13:08 e-Cigarette/Vaping Use Never Used 03/03/25 13:08 Thrive Assessment: Date of Thrive Assessment Date Thrive assessed 11/15/24 03/03/25 13:08 Currently or been in a relationship where the following occur: I choose not to answer Const Other: General: no acute distress and well developed Nutritional Appearance: well nourished Orientation/consciousness: patient oriented x3 HENMT Head: Yes normocephalic and Yes atraumatic Eyes General: appearance normal, both eyes and all related structures Pupils: Equal, round and reactive pupils present EOM: EOMs intact bilaterally Resp Effort & Inspection: normal respiratory effort Auscultation: clear to auscultation bilaterally Cardio Rate: regular rate Rhythm: regular rhythm Heart sounds: S1 normal heart sound present, S2 normal heart sound present, no gallops, no murmurs and no rubs GI Palpation (GI): No Abdominal aortic bruit present, Soft to palpation, nontender, No hepatosplenomegaly present and No Rebound tenderness present Auscultation: normal bowel sounds General: Yes no CVA tenderness Back/Spine/Pelvis Back: no CVA tenderness Cervical Spine: cervical ROM normal and No Cervical spine tenderness Thoracic/Lumbar Spine: thoraco-lumbar ROM normal, No pain with thoraco-lumbar ROM, No thoracic spinal tenderness and No lumbar spinal tenderness Extrem General: Yes normal to inspection, No edema and No calf tenderness Skin General: warm and dry. Normal skin color. Normal skin turgor Neuro General: patient oriented x3, gait normal and no focal neuro deficit Cranial nerves: Yes Equal, round and reactive pupils present Cognition (Neuro): normal cognition Gait exam (Neuro): Normal gait present Sensory Exam: No Sensory deficit (Neuro) Psych Appearance: grossly normal Affect: normal affect Attitude: cooperative Thought process: Normal thought process present Coding Level of Care Code Est Pt Level 4 (89135) Diagnoses Hypertension I10 Assessment & Plan Assessment & Plan (1) Hypertension: Code(s): I10 - Essential (primary) hypertension Category: Medical Plan: Resting blood pressure is 144/100, above goal of less than 140/90. Amlodipine increased to 10 mg daily. Low-sodium diet and weight management/cardio exercise encouraged. Follow-up in 1 month or sooner with symptoms or concerns. Verbalized understanding and agreed with the plan. Medications: New amlodipine 10 mg PO DAILY 30 tabs 3RF 30 days Discontinued amlodipine Discontinued Reason: Doctor's Order 5 mg PO DAILY 30 days 30 tabs 3RF
[2025-03-03 13:09] VITALS: BP 149/88; PULSE 96; RESP 16; TEMP 36.6; O2SAT 99; BMI 43.4
[2025-03-03 13:28] VITALS: BP 144/100
--- OUTSIDE RECORDS SUMMARY | 2025-03-03 14:59 | XMS_ITS | Clinical Summary ---
Author Organization [address] [facility] Address [address] [place] [address] Phone Care Team Providers Care School Childcare Attendant Name Role Phone Amanuel King FREDDY Primary Care Provider [phone] Allergies Active Allergy Reactions Criticality Noted Date Comments Prednisolone Itching 03/23/2023 Prednisone 12/28/2024 Medications No known medications Encounters Date Type Department Care Team Description 01/25/2025 Telephone Orthopedic Surgery [facility] [address] [phone] Darrell Mukherjee DPM 01/12/2025 9:15 AM EDT Office Visit Orthopedic [facility] [address] [phone] Darrell Mukherjee DPKrissy Pain in left ankle and joints of left foot (Primary Dx); Rupture of peroneal tendon of left foot; Disorder of ligament of ankle, left; Equinus contracture of left ankle 01/05/2025 7:22 PM EDT - 01/05/2025 11:59 PM EDT Hospital Encounter [facility] MRI [address] [place] [phone] Rupture of peroneal tendon of left foot Discharge Disposition: Home or Self Care 01/02/2025 Telephone Orthopedic Surgery [facility] [address] [phone] Darrell Mukherjee DPM 12/28/2024 2:45 PM EDT Consult Orthopedic [facility] [address] [phone] Darrell Mukherjee, DPM Rupture of peroneal tendon [...] 03/16/2025 4:30 PM EST Evaluation Outpatient Rehabilitation [address] [phone] Wilton Muñiz, PT Health Maintenance Due Date [...] Signed Date: 01/10/2025 04:52 ET Workstation ID: [id number] Transcribed By: Self Edit Transcribed Date: 01/10/2025 [...] Signed Date: 01/10/2025 04:52 ET Workstation ID: [id number] Transcribed By: Self Edit Transcribed Date: 01/10/2025 [...] Res ult from Last 3 Months Insurance [facility] PLAN Care Teams School Childcare Attendant Relationship Specialty Start Date End Date Amanuel King FNP [address] [place] [address] PCP - General Family Medicine 12/02/24
--- OUTSIDE RECORDS SUMMARY | 2025-03-03 14:59 | XMS_ITS | Clinical Summary ---
Author Organization [employer] Address [address] [facility] [address] [place] [address] Care Team Providers Care Copy Camera Operator Name Role Phone Unavailable Primary Care Provider Unavailabl e Allergies Active Allergy Reactions Criticality Noted Date [...] with MH counselor Rafa Morgan (out of [place]) FU with PCP to address adjustment of medication. Dyslipidemia 03/23/2023 Elevated blood pressure read ing in office without diagnosis of hypertension 01/02/2023 Assessment & Plan (01/02/2023 8:10 AM EDT): Patient with this for > 1 year He receives outside testosterone supplementation Needs CBC and CMP done, orders are in May need dose adjustment vs. 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 Patient was discharged from [facility] after MRI leg was reviewed. He wants [...] 03/23/2023 Tobacco Screening 07/02/2024 07/02/2023 COVID-19 Vaccine (3 - 2024- season) 2025 11/16/2020, 09/26/2020 Influenza Vaccine (#1) [...] PM EST) Hepatitis C Antibody Nonreactive Nonreactive [facility] Comment:Antibodies to HCV no t detected; does not exclude early acuteHCV infection. 04/29/2023 1:42 PM EST 04/29/2023 4:38 PM EST Meli Fofana LAB BLOOD ORDERABLES Final R esult Performing Organization Address [facility]/ZIP Co de Phone Number [facility] [address] [place] [address] [phone] * HIV-1/2 Antigen and Antibodies, Fourth Generation, with Reflexes (04/29/2023 1:42 PM EST) HIV AB/AG Nonreactive Nonreactive [facility] Comment:HIV-1 p24 Ag and/or HIV-1/HIV-2 Ab not detected.A test result that is nonreactive does not exclude thepossibility of exposure to or infection with HIV-1 and/orHIV-2. Nonreactive results in this assay for individualswith prior exposure to HIV-1 and/or HIV-2 may be due toantigen and antibody levels that are below the limit ofdetection of this assay.The Live [employer] HIV Ag/Ab Combo assay result andsupplemental assay results should be interpreted inconjunction with the patient's clinical presentation,history and other laboratory results. If the results areinconsistent with clinical evidence, additional testing issuggested to confirm the result. Blood Venous blood specimen / Unknown 04/29/2023 1:42 PM EST 04/29/2023 4:38 PM EST Meli Fofana [employer] LAB BLOOD ORDERABLES Final R esult Performing Organization Address [facility]/ZIP Co de Phone Number [facility] [address] [place] [address] [phone] * (ABNORMAL) Lipid Panel, Standard (04/29/2023 1:42 PM EST) Triglycerides 152(H) <150 mg/dL [facility] Comment:Desirable Triglyceri de: less than 150 mg/dLBorderline High Triglyceride 150-199 mg/dLHigh Triglyceride: 200-499 mg/dLVery High Triglyceride: greater than or equal to 5OO mg/dL Cholesterol 240(H) <200 mg/dL [facility] Comment:Desirable Cholestero l: less than 200 mg/dLBorderline High Cholesterol: 200-239 mg/dLHigh Cholesterol: greater than 239 mg/dL LDL Cholesterol Calculated 170(H) <100 mg/dL [facility] Comment:Desirable LDL: less than 100 mg/dLNear Optimal/Above Optimal LDL: 110- 129 mg/dLBorderline High LDL: 130-159 mg/dLHigh LDL: 160-189 mg/dLVery High LDL: greater than or equal to 190 mg/dL HDL Cholesterol 40(L) >40 mg/dL [facility] Comment:Desirable HDL: great er than 40 mg/dL Note: This HDL assay may give artificially low results in patients with liver disease. Blood Venous blood specimen / Unknown 04/29/2023 1:42 PM EST 04/29/2023 4:38 PM EST us Meli Fofana DO LAB BLOOD ORDERABLES Final R esult [facility] [address] [place] [address] [phone] from Last 3 Months or Most Recently Relevant to Health Maintenance Insurance [facility] PPO [facility] - HSN FULL (MEDICAID) [place] [id number]
== END 2025-03-03 15:01 | disposition home or self-care (01) ==
LOC: HO.HMCFM 12:59
PROVIDERS: PCP Nurse Practitioner Family; Visit Provider Nurse Practitioner Family
DX: I10 Essential (primary) hypertension (principal)

== ENCOUNTER → 2025-03-03 12:58 | Outpatient (BNVA) | payer OTHER, SELFPAY | PROVIDERS: PCP Nurse Practitioner Family; Visit Provider Nurse Practitioner Family | DX: I10 Essential (primary) hypertension (principal) | CPT/HCPCS: 99212 ==